=== PATIENT | male | born 1950 | race Caucasian/White ===

== ENCOUNTER 2016-09-02 10:05 | Inpatient (IN) | payer MEDICARE, MEDICAID ==
[2016-09-02] MEDS ORDERED: IPRATROPIUM/ALBUTEROL 3 ML NEB INH ONE (10:19)
[2016-09-02] MEDS ORDERED: IPRATROPIUM/ALBUTEROL 3 ML NEB INH STA (10:20)
[2016-09-02] MEDS ORDERED: cefTRIAXone 1 GM in SODIUM CHLORIDE 0.9% MINIBAG 100 ML IV STA (11:28)
[2016-09-02] MEDS ORDERED: AZITHROMYCIN INJ 500 MG in SODIUM CHLORIDE 0.9% 250 ML IV STA (11:30)
[2016-09-02] MEDS ORDERED: cefTRIAXone 1 GM VIAL ONE (11:50)
[2016-09-02] MEDS ORDERED: SODIUM CHLORIDE FLUSH 0.9% 10 ML SYRINGE IVP PRN (12:47)
[2016-09-02] MEDS ORDERED: ONDANSETRON 4 MG/2 ML VIAL IVP PRN (12:47)
[2016-09-02] MEDS: FAMOTIDINE 20 MG TABLET PO SCH (13:56)
[2016-09-02] MEDS ORDERED: guaiFENesin/CODEINE 5 ML UDC PO ONE (14:00)
[2016-09-02] MEDS ORDERED: methylPREDNISolone SUCCINATE 125 MG/2 ML VIAL IVP ONE (14:00)
[2016-09-02] MEDS: SODIUM CHLORIDE FLUSH 0.9% 10 ML SYRINGE IVP SCH ×2 (14:02→21:33)
[2016-09-02] MEDS: IPRATROPIUM/ALBUTEROL 3 ML NEB INH SCH ×2 (14:15→22:45)
[2016-09-02] MEDS: IPRATROPIUM/ALBUTEROL 3 ML NEB INH ONE ×2 (14:27→16:06)
[2016-09-02] MEDS: ACETAMINOPHEN/CODEINE 300 MG/30 MG TABLET PO PRN ×2 (14:59→21:33)
[2016-09-02] MEDS: BENZONATATE 100 MG CAPSULE PO SCH ×2 (15:01→21:33)
[2016-09-02] MEDS ORDERED: MAGNESIUM SULFATE 1 GM in SODIUM CHLORIDE 0.9% 50 ML IV ONE (16:00)
[2016-09-02] MEDS: NAPROXEN 250 MG TABLET PO SCH (16:13)
[2016-09-02] MEDS: SACCHAROMYCES BOULARDII 250 MG CAPSULE PO SCH (16:13)
[2016-09-02] MEDS: INSULIN ASPART 300 UNIT/3 ML PEN SUBQ SCH ×2 (16:24→21:32)
[2016-09-02] MEDS: metFORMIN 500 MG TABLET PO SCH (16:24)
[2016-09-02] MEDS ORDERED: metFORMIN 850 MG TABLET PO SCH (18:00)
[2016-09-02] MEDS ORDERED: FLUTICASONE HFA 220 MCG INHALER INH SCH (21:00)
[2016-09-02] MEDS ORDERED: SALMETEROL XINAFOATE INH SCH (21:00)
[2016-09-02] MEDS: methylPREDNISolone SUCCINATE 40 MG/ML VIAL IVP SCH (21:32)
[2016-09-02] MEDS: BUDESONIDE 0.5 MG/2 ML NEB INH SCH (22:45)
[2016-09-02] MEDS: FORMOTEROL FUMARATE NEB 20 MCG/2 ML INH SCH (22:45)
[2016-09-03] MEDS: TEMAZEPAM 15 MG CAPSULE PO PRN (00:41)
[2016-09-03] MEDS: BENZONATATE 100 MG CAPSULE PO SCH ×3 (05:17→21:11)
[2016-09-03] MEDS: ACETAMINOPHEN/CODEINE 300 MG/30 MG TABLET PO PRN ×3 (05:17→17:46)
[2016-09-03] MEDS: SODIUM CHLORIDE FLUSH 0.9% 10 ML SYRINGE IVP SCH ×3 (05:19→21:12)
[2016-09-03] MEDS: BUDESONIDE 0.5 MG/2 ML NEB INH SCH ×2 (07:08→20:55)
[2016-09-03] MEDS: FORMOTEROL FUMARATE NEB 20 MCG/2 ML INH SCH ×2 (07:08→20:55)
[2016-09-03] MEDS: IPRATROPIUM/ALBUTEROL 3 ML NEB INH SCH ×3 (07:08→14:50)
[2016-09-03] MEDS: guaiFENesin/CODEINE 5 ML UDC PO PRN ×2 (08:34→20:14)
[2016-09-03] MEDS: INSULIN ASPART 300 UNIT/3 ML PEN SUBQ SCH ×5 (08:36→21:03)
[2016-09-03] MEDS: AZITHROMYCIN 250 MG TABLET PO SCH (08:38)
[2016-09-03] MEDS: LISINOPRIL 5 MG TABLET PO SCH (08:47)
[2016-09-03] MEDS: FAMOTIDINE 20 MG TABLET PO SCH (08:47)
[2016-09-03] MEDS: NAPROXEN 250 MG TABLET PO SCH ×3 (08:47→16:33)
[2016-09-03] MEDS: SACCHAROMYCES BOULARDII 250 MG CAPSULE PO SCH ×2 (08:47→16:33)
[2016-09-03] MEDS: POLYETHYLENE GLYCOL 3350 17 GM PACKET PO SCH (08:48)
[2016-09-03] MEDS: ENOXAPARIN 40 MG/0.4 ML SYRINGE SUBQ SCH (08:48)
[2016-09-03] MEDS: cefTRIAXone 2 GM in SODIUM CHLORIDE 0.9% MINIBAG 100 ML IV SCH (08:48)
[2016-09-03] MEDS: metFORMIN 500 MG TABLET PO SCH ×2 (08:50→16:33)
[2016-09-03] MEDS ORDERED: metFORMIN 850 MG TABLET PO SCH (09:00)
[2016-09-03] MEDS: methylPREDNISolone SUCCINATE 40 MG/ML VIAL IVP SCH ×2 (09:37→20:14)
[2016-09-03] MEDS ORDERED: MAGNESIUM SULFATE 1 GM in SODIUM CHLORIDE 0.9% 50 ML IV ONE (14:45)
[2016-09-04] MEDS: ACETAMINOPHEN/CODEINE 300 MG/30 MG TABLET PO PRN ×4 (00:16→19:09)
[2016-09-04] MEDS: TEMAZEPAM 15 MG CAPSULE PO PRN ×2 (00:16→23:48)
[2016-09-04] MEDS: guaiFENesin/CODEINE 5 ML UDC PO PRN ×3 (03:40→20:21)
[2016-09-04] MEDS: ALBUTEROL NEB 2.5 MG/3 ML INH PRN ×4 (04:38→19:15)
[2016-09-04] MEDS: SODIUM CHLORIDE FLUSH 0.9% 10 ML SYRINGE IVP SCH ×3 (05:00→21:23)
[2016-09-04] MEDS: BENZONATATE 100 MG CAPSULE PO SCH ×3 (06:13→21:23)
[2016-09-04] MEDS: FORMOTEROL FUMARATE NEB 20 MCG/2 ML INH SCH ×2 (07:30→19:15)
[2016-09-04] MEDS: BUDESONIDE 0.5 MG/2 ML NEB INH SCH ×2 (07:30→19:15)
[2016-09-04] MEDS: INSULIN ASPART 300 UNIT/3 ML PEN SUBQ SCH ×4 (08:49→20:56)
[2016-09-04] MEDS: ENOXAPARIN 40 MG/0.4 ML SYRINGE SUBQ SCH (08:50)
[2016-09-04] MEDS: cefTRIAXone 2 GM in SODIUM CHLORIDE 0.9% MINIBAG 100 ML IV SCH (08:50)
[2016-09-04] MEDS: LISINOPRIL 5 MG TABLET PO SCH (08:51)
[2016-09-04] MEDS: FAMOTIDINE 20 MG TABLET PO SCH (08:51)
[2016-09-04] MEDS: metFORMIN 500 MG TABLET PO SCH ×2 (08:51→16:37)
[2016-09-04] MEDS: methylPREDNISolone SUCCINATE 40 MG/ML VIAL IVP SCH ×2 (08:51→20:57)
[2016-09-04] MEDS: NAPROXEN 250 MG TABLET PO SCH ×3 (08:52→16:37)
[2016-09-04] MEDS: AZITHROMYCIN 250 MG TABLET PO SCH (08:52)
[2016-09-04] MEDS: SACCHAROMYCES BOULARDII 250 MG CAPSULE PO SCH ×2 (08:52→16:37)
[2016-09-04] MEDS: POLYETHYLENE GLYCOL 3350 17 GM PACKET PO SCH (08:53)
[2016-09-05] MEDS: ACETAMINOPHEN/CODEINE 300 MG/30 MG TABLET PO PRN ×4 (00:35→18:41)
[2016-09-05] MEDS: guaiFENesin/CODEINE 5 ML UDC PO PRN ×4 (02:25→20:45)
[2016-09-05] MEDS: SODIUM CHLORIDE FLUSH 0.9% 10 ML SYRINGE IVP SCH ×3 (06:37→21:14)
[2016-09-05] MEDS: BENZONATATE 100 MG CAPSULE PO SCH ×3 (06:37→22:37)
[2016-09-05] MEDS: BUDESONIDE 0.5 MG/2 ML NEB INH SCH ×2 (07:20→20:45)
[2016-09-05] MEDS: ALBUTEROL NEB 2.5 MG/3 ML INH PRN ×3 (07:20→20:45)
[2016-09-05] MEDS: FORMOTEROL FUMARATE NEB 20 MCG/2 ML INH SCH ×2 (07:20→20:45)
[2016-09-05] MEDS: INSULIN ASPART 300 UNIT/3 ML PEN SUBQ SCH ×4 (07:58→20:45)
[2016-09-05] MEDS: levoFLOXacin 250 MG TABLET PO SCH (08:07)
[2016-09-05] MEDS: POLYETHYLENE GLYCOL 3350 17 GM PACKET PO SCH (08:07)
[2016-09-05] MEDS: NAPROXEN 250 MG TABLET PO SCH ×3 (08:08→17:07)
[2016-09-05] MEDS: predniSONE 20 MG TABLET PO SCH (08:08)
[2016-09-05] MEDS: SACCHAROMYCES BOULARDII 250 MG CAPSULE PO SCH ×2 (08:08→17:06)
[2016-09-05] MEDS: LISINOPRIL 5 MG TABLET PO SCH (08:09)
[2016-09-05] MEDS: ENOXAPARIN 40 MG/0.4 ML SYRINGE SUBQ SCH (08:09)
[2016-09-05] MEDS: FAMOTIDINE 20 MG TABLET PO SCH (08:09)
[2016-09-05] MEDS: metFORMIN 500 MG TABLET PO SCH ×2 (08:10→17:06)
[2016-09-05] MEDS ORDERED: methylPREDNISolone SUCCINATE 40 MG/ML VIAL IVP SCH (09:00)
[2016-09-05] MEDS ORDERED: diazePAM 5 MG TABLET PO SCH (21:00)
[2016-09-06] MEDS: ACETAMINOPHEN/CODEINE 300 MG/30 MG TABLET PO PRN ×3 (00:38→13:10)
[2016-09-06] MEDS: TEMAZEPAM 15 MG CAPSULE PO PRN (01:42)
[2016-09-06] MEDS: guaiFENesin/CODEINE 5 ML UDC PO PRN ×2 (05:25→11:45)
[2016-09-06] MEDS: BENZONATATE 100 MG CAPSULE PO SCH ×2 (05:25→13:10)
[2016-09-06] MEDS: SODIUM CHLORIDE FLUSH 0.9% 10 ML SYRINGE IVP SCH ×2 (05:26→14:44)
[2016-09-06] MEDS: INSULIN ASPART 300 UNIT/3 ML PEN SUBQ SCH ×2 (08:11→12:05)
[2016-09-06] MEDS: POLYETHYLENE GLYCOL 3350 17 GM PACKET PO SCH (08:12)
[2016-09-06] MEDS: BUDESONIDE 0.5 MG/2 ML NEB INH SCH (08:38)
[2016-09-06] MEDS: ALBUTEROL NEB 2.5 MG/3 ML INH PRN (08:39)
[2016-09-06] MEDS: FORMOTEROL FUMARATE NEB 20 MCG/2 ML INH SCH (08:39)
[2016-09-06] MEDS: metFORMIN 500 MG TABLET PO SCH (08:48)
[2016-09-06] MEDS: levoFLOXacin 250 MG TABLET PO SCH (08:49)
[2016-09-06] MEDS: LISINOPRIL 5 MG TABLET PO SCH (08:49)
[2016-09-06] MEDS: predniSONE 20 MG TABLET PO SCH (08:50)
[2016-09-06] MEDS: ENOXAPARIN 40 MG/0.4 ML SYRINGE SUBQ SCH (08:51)
[2016-09-06] MEDS: NAPROXEN 250 MG TABLET PO SCH ×2 (08:51→12:05)
[2016-09-06] MEDS: SACCHAROMYCES BOULARDII 250 MG CAPSULE PO SCH (08:51)
[2016-09-06] MEDS: FAMOTIDINE 20 MG TABLET PO SCH (08:52)
== END 2016-09-06 14:56 | disposition home or self-care (01) | DRG 190 ==
DX: J44.0 Chronic obstructive pulmonary disease with (acute) lower respiratory infection (principal); J18.9 Pneumonia, unspecified organism; J44.9 Chronic obstructive pulmonary disease, unspecified; I10 Essential (primary) hypertension; J15.7 Pneumonia due to Mycoplasma pneumoniae; J96.01 Acute respiratory failure with hypoxia; J44.1 Chronic obstructive pulmonary disease with (acute) exacerbation; J20.9 Acute bronchitis, unspecified; E11.9 Type 2 diabetes mellitus without complications; Z79.84 Long term (current) use of oral hypoglycemic drugs; Z87.891 Personal history of nicotine dependence; J84.10 Pulmonary fibrosis, unspecified; Z79.52 Long term (current) use of systemic steroids; Z80.1 Family history of malignant neoplasm of trachea, bronchus and lung

== ENCOUNTER 2019-07-30 13:35 | Inpatient (IN) | payer MEDICARE, MEDICAID ==
[2019-07-30 15:34] LABS: BASOPHILS % (AUTO) 0.3 %; HGB - HEMOGLOBIN 12.1 g/dL (14.0-18.0); LYMPHOCYTES # (AUTO) 0.5 10^3/uL (1.5-3.5); LYMPHOCYTES % (AUTO) 4.2 %; MEAN CORPUSCULAR HEMOGLOBIN 28.4 pg (27.0-31.0); MEAN CORPUSCULAR HGB CONC 30.9 g/dL (32.0-36.0); MEAN PLATELET VOLUME 8.3 fL (7.4-11.4); MONOCYTES # (AUTO) 0.5 10^3/uL (0.0-1.0); NEUTROPHILS # (AUTO) 9.7 10^3/uL (1.5-6.6); NEUTROPHILS % (AUTO) 89.8 %; PLT - PLATELET COUNT 341 10^3/uL (130-450); RED BLOOD COUNT 4.26 10^6/uL (4.70-6.10); RED CELL DISTRIBUTION WIDTH 15.4 % (12.0-15.0); WHITE BLOOD COUNT 10.8 x10^3/uL (4.8-10.8)
[2019-07-30 15:46] LABS: ALBUMIN 4.1 g/dL (3.2-5.5); ALBUMIN/GLOBULIN RATIO 1.2 (1.0-2.2); BILIRUBIN,TOTAL 0.4 mg/dL (0.2-1.0); CALCIUM 9.4 mg/dL (8.5-10.3); CREATININE 1.1 mg/dL (0.6-1.2); TOTAL PROTEIN 7.6 g/dL (6.7-8.2)
[2019-07-30] MEDS ORDERED: DEXAMETHASONE 10 MG/ML VIAL PO STA (15:59)
[2019-07-30] MEDS ORDERED: CHERRY SYRUP 10 ML UDC PO ONE (15:59)
[2019-07-30] MEDS ORDERED: IPRATROPIUM/ALBUTEROL 3 ML NEB INH STA (15:59)
--- NOTE | 2019-07-30 16:05 | ED Physician Documentation ---
PD HPI DYSPNEA - Stated complaint Stated Complaint: SOA - Chief complaint Chief Complaint: Resp - History obtained from History obtained from: Patient - History of Present Illness Timing - details: Gradual onset Pain level max: 0 Pain level now: 0 Inciting event(s): URI Improved by: O2, Rest Worsened by: Exertion Associated symptoms: Fever, Cough Recently seen: Not recently seen - Additional information Additional information: 69-year-old male with a history of COPD, sees a nuclear pharmacist in [place]. He states he has been sick for the past 4 to 5 days. Is maintained on azithromycin daily. Started Bactrim 4 days ago. Concerned that he may have pneumonia. He is normally on 2 L of home O2 21/02. He has had to increase his home O2 to 3 L. He states he feels more out of breath. Has had chills, unsure if he has had fever. Has a dry cough. He is currently on prednisone 40 mg a day as well. 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 : None HEENT: None Psych: None Musculoskeletal: None Derm: None - Past Surgical History Past Surgical History: Yes General: Other (thoracotomy of left lobe with wedge) - Present Medications Home Medications: Ambulatory Orders Medication Instructions Recorded Confirmed Acetaminophen/Cod 300/30 [Tylenol 1 - 2 tab PO Q6H PRN 09/02/16 09/02/16 #3] Albuterol Sulfate [Proair Hfa 2 puffs INH Q4H PRN 09/02/16 09/02/16 Inhaler] Diazepam 5 mg PO QPM 09/02/16 09/02/16 Etodolac [Lodine] 400 mg PO DAILY 09/02/16 09/02/16 Fluticasone 220 Mcg [Flovent] 2 puffs INH BID 09/02/16 09/02/16 Ipratropium/Albuterol [Combivent 1 puffs INH QID 09/02/16 09/02/16 Respimat] Salmeterol Xinafoate [Serevent 1 puffs INH BID 09/02/16 09/02/16 Diskus] Tiotropium [place] [Spiriva] 1 puffs INH DAILY 09/02/16 09/02/16 lisinopriL [Lisinopril] 10 mg PO DAILY 09/02/16 09/02/16 metFORMIN [Glucophage] 1,000 mg PO DAILY PM 09/02/16 09/02/16 metFORMIN [Glucophage] 1,500 mg PO QDBREAKFAST 09/02/16 09/02/16 Benzonatate [Tessalon] 100 mg PO TID #30 capsule 09/06/16 Budesonide [Pulmicort] 0.5 mg INH RTBID neb 09/06/16 Famotidine [Pepcid] 20 mg PO DAILY tablet 09/06/16 Formoterol Fumarate [Perforomist] 20 mcg INH RTBID neb 09/06/16 Insulin Aspart [NovoLOG] 1 - 5 unit SUBQ 09/06/16 0800,1200,1700,2100 pen diazePAM [Valium] 5 mg PO QPM #30 tablet 09/06/16 guaiFENesin/CODEINE [Robitussin AC] 5 ml PO Q6HR PRN 7 Days udc 09/06/16 levoFLOXacin [Levaquin] 750 mg PO DAILY #5 tablet 09/06/16 predniSONE [Deltasone] 20 mg PO DAILYWM #10 tablet 09/06/16 - Allergies Allergies/Adverse Reactions: Allergies Allergy/AdvReac Type Severity Reaction Status Date / Time ciprofloxacin [From Cipro] Allergy Unknown Verified 07/30/19 14:21 ciprofloxacin HCl * Allergy Unknown Verified 07/30/19 14:21 [From Cipro] hydromorphone HCl * Allergy Unknown Verified 07/30/19 14:21 [From Dilaudid] oxycodone Allergy Unknown Verified 07/30/19 14:21 oxycodone HCl * Allergy Unknown Verified 07/30/19 14:21 [From OxyContin] - Social History Does the pt smoke?: No Smoking Status: Former smoker - POLST Patient has POLST: No POLST Status: Full Code PD ED PE NORMAL - Vitals Vital signs reviewed: Yes - General General: Alert and oriented X 3, No acute distress - HEENT HEENT: PERRL, Ears normal, Moist mucous membranes, Pharynx benign - Neck Neck: Supple, no meningeal sign - Cardiac Cardiac: RRR - Respiratory Respiratory: Other (Moderate respiratory distress with very diminished breath sounds and wheezing bilaterally) - Abdomen Abdomen: Soft, Non tender, Non distended - Derm Derm: Warm and dry, No rash - Extremities Extremities: No edema - Neuro Neuro: Alert and oriented X 3 Results - Vitals Vitals: Vital Signs - 24 hr 07/30/19 07/30/19 07/30/19 14:18 16:04 16:24 Temperature 37.1 C Heart Rate 93 90 89 Respiratory 20 18 20 Rate Blood Pressure 131/71 H 115/77 O2 Saturation 94 98 07/30/19 07/30/19 07/30/19 16:47 17:04 19:00 Temperature Heart Rate 91 91 103 H Respiratory 18 18 18 Rate Blood Pressure 109/79 134/75 H O2 Saturation 100 97 Oxygen O2 Source Room air Oxygen Flow Rate 4 - Labs Labs: Laboratory Tests 07/30/19 07/30/19 07/30/19 15:29 15:29 15:29 WBC 10.8 RBC 4.26 L Hgb 12.1 L Hct 39.2 L MCV 92.0 MCH 28.4 MCHC 30.9 L RDW 15.4 H Plt Count 341 MPV 8.3 Neut # (Auto) 9.7 H Lymph # (Auto) 0.5 L [place] # (Auto) 0.5 Eos # (Auto) 0.0 Baso # (Auto) 0.0 Absolute Nucleated RBC 0.00 Nucleated RBC % 0.0 Sodium 136 Potassium 5.6 H Chloride 98 L Carbon Dioxide 28 Anion Gap 10.0 BUN 21 H Creatinine 1.1 Estimated GFR (MDRD) 66 L Glucose 191 H Calcium 9.4 Total Bilirubin 0.4 AST 22 ALT 21 Alkaline Phosphatase 64 Troponin I High Sens 6.8 B-Natriuretic Peptide Total Protein 7.6 Albumin 4.1 Globulin 3.5 Albumin/Globulin Ratio 1.2 Lipase 26 Influenza A (Rapid) Influenza B (Rapid) 07/30/19 07/30/19 15:29 16:00 WBC RBC Hgb Hct MCV MCH MCHC RDW Plt Count MPV Neut # (Auto) Lymph # (Auto) [place] # (Auto) Eos # (Auto) Baso # (Auto) Absolute Nucleated RBC Nucleated RBC % Sodium Potassium Chloride Carbon Dioxide Anion Gap BUN Creatinine Estimated GFR (MDRD) Glucose Calcium Total Bilirubin AST ALT Alkaline Phosphatase Troponin I High Sens B-Natriuretic Peptide 34 Total Protein Albumin Globulin Albumin/Globulin Ratio Lipase Influenza A (Rapid) Negative Influenza B (Rapid) Negative - Rads (name of study) Chest x-ray Radiology: Prelim report reviewed, EMP read contemporaneously, See rad report (Hyperinflated lungs compatible with COPD. Stellate lateral right upper lobe opacity. Question scarring or lung nodule. Recommend chest CT. Lateral right basilar atelectasis or airspace disease) PD MEDICAL DECISION MAKING - ED course Complexity details: reviewed results, re-evaluated patient, considered differential, d/w patient ED course: Patient with a COPD exacerbation. He is on 4 inhalers at home, but no nebulizers. He is also on 40 mg of prednisone daily as well as azithromycin chronically. He has been taking Bactrim as well. Added doxycycline here. Given 3 nebulizer treatments, O2 sat improved, but he is still requiring 3 to 4 L via nasal cannula, his baseline is 2 L. Whenever he gets up to walk he drops to the mid 80s. Discussed the case with Dr. Prater, hospitalist who accepts This document was made in part using voice recognition software. While efforts are made to proofread this document, sound alike and grammatical errors may occur. Patient also has mild hyperkalemia, this should improve with the albuterol administration. Departure - Departure Disposition: ED Place in Observation Clinical Impression: COPD exacerbation, Hyperkalemia Condition: Stable Discharge Date/Time: 07/30/19 20:30
--- NOTE | 2019-07-30 16:12 | XRAY Report ---
Reason: dyspnea Procedure Date: 07/30/2019 Accession Number: [id number] / [id number] Procedure: XR - Chest 1 View X-Ray CPT Code: 61163 Final Report FULL RESULT: EXAM: CHEST RADIOGRAPHY EXAM DATE: 07/30/2019 04:00 PM. CLINICAL HISTORY: Dyspnea. COMPARISON: CHEST 2 VIEW PA/LAT 09/02/2016 10:29 AM. TECHNIQUE: 1 view. FINDINGS: Lungs/Pleura: Hyperinflated lungs. Prior extensive left upper lobe airspace disease has resolved. Elongated lateral right basilar opacity. Stellate lateral right upper lobe opacity projecting near posterolateral right fifth rib. Mediastinum: Within exam limitations, the cardiomediastinal contour is normal. Other: None. IMPRESSION: 1. Hyperinflated lungs compatible with COPD. 2. Stellate lateral right upper lobe opacity. Question scarring or lung nodule. Recommend chest CT. 3. Lateral right basilar atelectasis or airspace disease. RADIA
[2019-07-30] MEDS ORDERED: ALBUTEROL NEB 2.5 MG/3 ML INH STA (16:36)
[2019-07-30] MEDS ORDERED: ALBUTEROL NEB 2.5 MG/3 ML INH ONE (16:47)
[2019-07-30] MEDS ORDERED: DOXYCYCLINE 100 MG TABLET PO STA (17:19)
[2019-07-30] MEDS ORDERED: SODIUM CHLORIDE 0.9% 1,000 ML IV ONE (18:22)
[2019-07-30] MEDS ORDERED: ALBUTEROL NEB 2.5 MG/3 ML INH PRN (19:52)
--- NOTE | 2019-07-30 19:55 | HISTORY & PHYSICAL EXAMINATION ---
Chief Complaint - Chief Complaint Chief Complaint: Dyspnea History of Present Illness - Admitted From Admitted From:: Home - History Obtained From Records Reviewed: Yes History obtained from: Patient, ER Physician, EMR - History of Present Illness HPI Comment/Other: This is a 69-year-old male with a past medical history significant for COPD on 2 L of oxygen, type 2 diabetes who presents today complaining of worsening shortness of breath over the past 5 days. States he first developed flulike symptoms about 1 week ago. He had chills, malaise, body aches. He then started to feel short of breath about 2 days later. He is on chronic prednisone 20 mg daily and he increase this to 60 mg with some improvement in his symptoms. He also began taking Bactrim orally that he had available at the pharmacy. He said he felt better on Tuesday but that his dyspnea returned and has progressively become more severe and so he sought medical attention today. He has been on chronic steroids for many years. He has also been on daily azithromycin pres cribed by his fingerprint classifier for about the past 8 months. He follows with Dr. Lebron Martinez at the [facility]. He no longer smokes but did smoke about a pack and 1/2 to 3 packs a day for around 30 years. He wears 2 L of oxygen at baseline and uses 3 L with exertion. This is his second hospitalization for COPD exacerbation with his last being about 2 years ago. He reports feeling dyspneic at rest but it is more prominent with exertion. He is also had a productive cough with beige sputum. He does report left-sided chest pain that is pleuritic in nature and is most profound with a deep inspiration. The pain is pressure-like in nature. He reports no prior cardiac history. He states he had a stress test about 2 years ago which was unremarkable. He is also complaining of lower extremity edema but he states this is chronic for him. It becomes more profound when he consumes more salt in his diet. He denies orthopnea. He reports no nausea, vomiting, abdominal pain, diarrhea. In the emergency department, he is found to be afebrile with temperature of the 37.1. He was tachycardic with a heart rate of 93. Blood pressure was 131/71. He was slightly tachypneic with a respiratory of 20 and he was saturating 98% on 4 L of oxygen. Labs were unremarkable except for potassium of 5.6. Influenza was negative. A chest x-ray did not reveal an obvious infiltrate. He was treated with Decadron p.o. as well as a few breathing treatments with only mild improvement. He still felt quite dyspneic with exertion and his oxygen durations dropped to the 80s and therefore medicine was consulted for admission. History - Past Medical History Respiratory: reports: COPD, Emphysema, Pneumonia Endocrine/Autoimmune: reports: Type 2 diabetes GI: reports: GERD STATE COMPTROLLER: reports: None : reports: None HEENT: reports: None Psych: reports: None Musculoskeletal: reports: None Derm: reports: None MRSA Hx?: No - Past Surgical History General: reports: Other (thoracotomy of left lobe with wedge) - Family & Social History Family History Comment/Other: Reports no known family history. He denies family history of COPD or cardiac problems. Living arrangement: At home Living Situation: Alone Social History Notes: He lives at home alone. He was previously employed for the [employer] and worked with the [employer] system. He reports 3 exposures in the past to chlorine. He no longer smokes but did smoke a pack and 1/2 to 3 packs a day for 32 years. He does not drink alcohol. - Substance History Use: Uses substance without health or social issues: NONE - POLST Patient has POLST: No POLST Status: Full Code Meds/Allgy - Home Medications Home Medications: Ambulatory Orders Medication Instructions Recorded Confirmed Acetaminophen/Cod 300/30 [Tylenol 1 - 2 tab PO Q6H PRN 09/02/16 09/02/16 #3] Albuterol Sulfate [Proair Hfa 2 puffs INH Q4H PRN 09/02/16 09/02/16 Inhaler] Diazepam 5 mg PO QPM 09/02/16 09/02/16 Etodolac [Lodine] 400 mg PO DAILY 09/02/16 09/02/16 Fluticasone 220 Mcg [Flovent] 2 puffs INH BID 09/02/16 09/02/16 Ipratropium/Albuterol [Combivent 1 puffs INH QID 09/02/16 09/02/16 Respimat] Salmeterol Xinafoate [Serevent 1 puffs INH BID 09/02/16 09/02/16 Diskus] Tiotropium [place] [Spiriva] 1 puffs INH DAILY 09/02/16 09/02/16 lisinopriL [Lisinopril] 10 mg PO DAILY 09/02/16 09/02/16 metFORMIN [Glucophage] 1,000 mg PO DAILY PM 09/02/16 09/02/16 metFORMIN [Glucophage] 1,500 mg PO QDBREAKFAST 09/02/16 09/02/16 Benzonatate [Tessalon] 100 mg PO TID #30 capsule 09/06/16 Budesonide [Pulmicort] 0.5 mg INH RTBID neb 09/06/16 Famotidine [Pepcid] 20 mg PO DAILY tablet 09/06/16 Formoterol Fumarate [Perforomist] 20 mcg INH RTBID neb 09/06/16 Insulin Aspart [NovoLOG] 1 - 5 unit SUBQ 09/06/16 0800,1200,1700,2100 pen diazePAM [Valium] 5 mg PO QPM #30 tablet 09/06/16 guaiFENesin/CODEINE [Robitussin AC] 5 ml PO Q6HR PRN 7 Days udc 09/06/16 levoFLOXacin [Levaquin] 750 mg PO DAILY #5 tablet 09/06/16 predniSONE [Deltasone] 20 mg PO DAILYWM #10 tablet 09/06/16 - Allergies Allergies/Adverse Reactions: Allergies Allergy/AdvReac Type Severity Reaction Status Date / Time ciprofloxacin [From Cipro] Allergy Unknown Verified 07/30/19 14:21 ciprofloxacin HCl * Allergy Unknown Verified 07/30/19 14:21 [From Cipro] hydromorphone HCl * Allergy Unknown Verified 07/30/19 14:21 [From Dilaudid] oxycodone Allergy Unknown Verified 07/30/19 14:21 oxycodone HCl * Allergy Unknown Verified 07/30/19 14:21 [From OxyContin] Review of Systems - Constitutional Constitutional: reports: Chills, Malaise. denies: Fatigue, Fever - Ears, Nose & Throat Ears, Nose & Throat: reports: Nasal congestion, Sore throat - Cardiovascular Cariovascular: reports: Chest pain (Pleuritic and present with deep inspiration.), Edema, Exertional dyspnea, Decr. exercise tolerance. denies: Lightheadedness - Respiratory Respiratory: reports: Cough, Sputum production, Wheezing, SOB at rest, SOB with exertion - Gastrointestinal Gastrointestinal: denies: Abdominal pain, Diarrhea, Nausea, Vomiting - Genitourinary Genitourinary: denies: Dysuria - Musculoskeletal Musculoskeletal: reports: Muscle pain, Back pain - Integumentary Integumentary: denies: Rash - Neurological Neurological: denies: General weakness, Focal weakness - All Other Systems All Other Systems: reports: Reviewed and negative Prior Level of Functionality: He lives alone and is independent with his ADLs. Exam - Vital Signs Reviewed Vital Signs: Yes Vital Signs: Vital Signs x48h Temp Pulse Resp BP Pulse Ox 07/30/19 19:00 103 H 18 134/75 H 97 07/30/19 17:04 91 18 109/79 100 07/30/19 16:47 91 18 07/30/19 16:24 89 20 07/30/19 16:04 90 18 115/77 98 07/30/19 14:18 37.1 C 93 20 131/71 H 94 - Physical Exam General Appearance: positive: No acute distress, Alert Eyes Bilateral: positive: Normal inspection ENT: positive: ENT inspection nml, Other (Nasal cannula in place) Neck: positive: Nml inspection Respiratory: positive: No respiratory distress, Wheezes (He has faint expiratory wheezes.) Cardiovascular: positive: Regular rate & rhythm, No murmur, Tachycardia. negative: Systolic murmur, Diastolic murmur Abdomen: positive: Non-tender, No distention. negative: Tenderness, Guarding, Rebound Skin: positive: No rash, Warm, Dry Extremities: positive: Full ROM, Pedal edema (+2 pitting edema in bilateral lower extremities.) Neurologic/Psychiatric: positive: Oriented x3. negative: Disoriented to person, Disoriented to place, Disoriented to time, Weakness, Slurred/abnml speech Conclusion/Plan - Problem List (1) COPD exacerbation Conclusion/Plan: His presentation is consistent with a COPD exacerbation. He is still symptomatic despite treatment in the emergency department and therefore will be placed in observation. We will start him on Solu-Medrol 40 mg twice a day. We will also start him on Levaquin as of 750 mg orally and duo nebs [id number]. Continue supplemental oxygen for goal saturation greater than 88%. (2) Hyperkalemia Conclusion/Plan: His potassium is elevated at 5.6. The etiology is not clear as he does not have acute kidney injury although he is on lisinopril and is a diabetic with mild hyperglycemia. Will recheck a basic metabolic panel and hold lisinopril for time being. (3) Chronic respiratory failure with hypoxia Conclusion/Plan: He has chronic respiratory failure with hypoxia secondary to his COPD. He is on 2 L of oxygen at baseline. He is currently saturating high 90s on 2 L of oxygen but reportedly desaturated to the mid 80s with exertion. Will treat his underlying COPD exacerbation and will likely perform another exercise desaturation test prior to discharge. Goal oxygen saturation will be greater than 88%. He is agreeable to seeing palliative care on outpatient basis given the severity of his COPD. (4) Lower extremity edema Conclusion/Plan: Ports is chronic and has been waxing and waning depending on his salt intake. Reports no prior history of heart failure and denies orthopnea. Will check a BNP for the time being. Unfortunately echocardiogram is not available for next few days but he may require an outpatient echocardiogram. Will limit his salt intake and ask him to elevated his legs. Will consider compression stockings if patient is agreeable. (5) Diabetes mellitus type II, non insulin dependent Conclusion/Plan: He has type 2 diabetes and is on chronic prednisone for his COPD. His last A1c was 7.1%. He is only on metformin at home. We will place him on a carb controlled diet and start him on Lantus 5 units at night along with sliding scale. We will recheck another hemoglobin A1c. (6) Right upper lobe pulmonary nodule Conclusion/Plan: Concern for right upper lobe lung nodule on the chest x-ray. The patient has been getting outpatient CT scans of the chest every 3 months and is scheduled for 1 in 2 weeks. I did inform him that chest x-ray was concerning for possible nodule. He states he will follow-up with his fingerprint classifier. - Lab Results Lab results reviewed: Yes Fish Bones: 07/31/19 05:23 07/31/19 05:23 - Diagnostic Imaging Results Diagnostic Imaging Results: positive: Final report reviewed Core Measures - Anticipated LOS I expect patient to be DC'd or transferred within 96 hours.: Yes - Issues Hospital Issues and Management Plan: 69-year-old male with COPD on chronic oxygen admitted for COPD exacerbation. Will treat with antibiotics, steroids, breathing treatments. - DVT/VTE - Prophylaxis VTE/DVT Device ordered at admit?: Yes VTE/DVT Prophylaxis med ordered at admit?: Yes
[2019-07-30] MEDS ORDERED: methylPREDNISolone SUCCINATE 40 MG/ML VIAL IVP SCH (21:00)
[2019-07-30] MEDS: INSULIN GLARGINE 300 UNIT/3 ML PEN SUBQ SCH (21:16)
[2019-07-30] MEDS: INSULIN ASPART 300 UNIT/3 ML PEN SUBQ SCH (21:17)
[2019-07-30] MEDS: ACETAMINOPHEN/CODEINE 300 MG/30 MG TABLET PO PRN (22:09)
[2019-07-30] MEDS: IPRATROPIUM/ALBUTEROL 3 ML NEB INH SCH (23:21)
[2019-07-31] MEDS: SODIUM CHLORIDE FLUSH 0.9% 10 ML SYRINGE IVP SCH ×3 (00:42→17:23)
[2019-07-31] MEDS: IPRATROPIUM/ALBUTEROL 3 ML NEB INH SCH ×6 (01:00→21:26)
[2019-07-31] MEDS: BENZONATATE 100 MG CAPSULE PO PRN ×2 (01:50→09:09)
[2019-07-31] MEDS: ACETAMINOPHEN/CODEINE 300 MG/30 MG TABLET PO PRN ×2 (03:53→13:30)
[2019-07-31 05:45] LABS: BASOPHILS % (AUTO) 0.2 %; HGB - HEMOGLOBIN 11.5 g/dL (14.0-18.0); LYMPHOCYTES # (AUTO) 0.5 10^3/uL (1.5-3.5); LYMPHOCYTES % (AUTO) 3.6 %; MEAN CORPUSCULAR HEMOGLOBIN 28.3 pg (27.0-31.0); MEAN CORPUSCULAR HGB CONC 30.5 g/dL (32.0-36.0); MEAN CORPUSCULAR VOLUME 92.6 fL (80.0-94.0); MEAN PLATELET VOLUME 8.6 fL (7.4-11.4); MONOCYTES # (AUTO) 0.7 10^3/uL (0.0-1.0); MONOCYTES % (AUTO) 4.9 %; NEUTROPHILS # (AUTO) 12.8 10^3/uL (1.5-6.6); NEUTROPHILS % (AUTO) 90.5 %; PLT - PLATELET COUNT 323 10^3/uL (130-450); RED BLOOD COUNT 4.07 10^6/uL (4.70-6.10); RED CELL DISTRIBUTION WIDTH 15.2 % (12.0-15.0); WHITE BLOOD COUNT 14.1 x10^3/uL (4.8-10.8)
[2019-07-31 06:02] LABS: CALCIUM 8.7 mg/dL (8.5-10.3); MAGNESIUM 2.4 mg/dL (1.7-2.8); PHOSPHORUS 4.4 mg/dL (2.5-4.6)
[2019-07-31 06:04] LABS: HB2 TOTAL 11.5 g/dL; HEMOGLOBIN A1C 0.75 g/dL; HEMOGLOBIN A1C % 8.1 % (4.6-6.2)
[2019-07-31] MEDS: INSULIN ASPART 300 UNIT/3 ML PEN SUBQ SCH ×4 (09:07→22:12)
[2019-07-31] MEDS: ENOXAPARIN 40 MG/0.4 ML SYRINGE SUBQ SCH (09:08)
[2019-07-31] MEDS: levoFLOXacin 250 MG TABLET PO SCH (09:08)
[2019-07-31] MEDS: methylPREDNISolone SUCCINATE 40 MG/ML VIAL IVP SCH ×3 (09:14→22:13)
[2019-07-31] MEDS ORDERED: methylPREDNISolone SUCCINATE 40 MG/ML VIAL IVP SCH (10:00)
[2019-07-31] MEDS ORDERED: SODIUM CHLORIDE 0.65% NASAL SPRAY NAS PRN (13:39)
[2019-07-31] MEDS ORDERED: SODIUM POLYSTYRENE SULFONATE 15 GM/60 ML BOTTLE PO ONE (14:45)
[2019-07-31] MEDS: SODIUM CHLORIDE 0.9% 1,000 ML IV SCH (14:54)
[2019-07-31] MEDS: SODIUM CHLORIDE FLUSH 0.9% 10 ML SYRINGE IVP PRN (14:55)
--- NOTE | 2019-07-31 15:46 | PROVIDER PROGRESS NOTE ---
Assessment/Plan - Problem List (1) COPD exacerbation Assessment/Plan: pt still report SOB, increase of steroid dosage to 60 mg tid from 40 mg bid. pt took 60 mg Prednisone at home and failed resume home INH steroid, long acting beta-agonist, and albuterol continue supplement of O2 (2) Hyperkalemia Conclusion/Plan: continue increase, unknown etiology, pt is on insulin and beta-agonist. order Kaylaxine continue lab monitor (3) Chronic respiratory failure with hypoxia Conclusion/Plan: pt present SOB, increase of steroid dosage to 60 mg tid from 40 mg bid. pt took 60 mg Prednisone at home and failed resume home INH steroid, long acting beta-agonist, and albuterol continue supplement of O2 (4) Lower extremity edema Conclusion/Plan: stable. pt has no issue to walk. advise rise his legs and Will consider compression stockings if patient is agreeable. 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 Concern for right upper lobe lung nodule on the chest x-ray. The patient has been getting outpatient CT scans of the chest every 3 months and is scheduled for 1 in 2 weeks. I did inform him that chest x-ray was concerning for possible nodule. He states he will follow-up with his corporate safety coordinator. - Current Meds Current Meds: Current Medications Generic Name Dose Route Start Last Admin Trade Name Freq PRN Reason Stop Dose Admin Acetaminophen/Codeine Phosphate 1 tab 07/30/19 21:29 07/31/19 13:30 Tylenol #3 PO 1 tab Q6HR PRN Administration PAIN Albuterol/Ipratropium 3 ml 07/31/19 11:00 07/31/19 14:59 Duoneb INH 3 ml RTQ4H NAYELI Administration Benzonatate 100 mg 07/30/19 19:52 07/31/19 09:09 Tessalon PO 100 mg TID PRN Administration Cough Enoxaparin Sodium 40 mg 07/31/19 09:00 07/31/19 09:08 Lovenox SUBQ 40 mg DAILY NAYELI Administration Sodium Chloride 1,000 mls @ 100 mls/hr 07/31/19 14:00 07/31/19 14:54 Normal Saline 0.9% IV 08/01/19 09:59 100 mls/hr .Q10H NAYELI Administration Insulin Aspart 1 - 9 unit 07/30/19 21:00 07/31/19 11:22 Novolog SUBQ 1 unit 0800,1200,1700,2100 NAYELI Administration Protocol Insulin Glargine 5 unit 07/30/19 21:00 07/30/19 21:16 Lantus Solostar SUBQ 5 unit QPM NAYELI Administration Levofloxacin 750 mg 07/31/19 09:00 07/31/19 09:08 Levaquin PO 750 mg DAILY NAYELI Administration Methylprednisolone 60 mg 07/31/19 09:09 07/31/19 09:14 Solu-Medrol (40mg Vial) IVP 60 mg TID NAYELI Administration Sodium Chloride 10 ml 07/30/19 19:47 07/31/19 14:55 Normal Saline Flush 0.9% IVP 10 ml PRN PRN Administration NEEDED PER PROVIDER ORDERS Sodium Chloride 10 ml 07/31/19 01:00 07/31/19 09:08 Normal Saline Flush 0.9% IVP 10 ml 0100,0900,1700 NAYELI Administration - Lab Result Fish Bone Diagrams: 07/31/19 05:23 07/31/19 13:21 - Additional Planning My Orders: My Active Orders 08/01/19 05:00 BMP - BASIC METABOLIC PANEL [CHEM] DAILYLAB CBC - COMP BLD CT W/AUTO DIFF [HEME] DAILYLAB 08/02/19 05:00 BMP - BASIC METABOLIC PANEL [CHEM] DAILYLAB CBC - COMP BLD CT W/AUTO DIFF [HEME] DAILYLAB 08/03/19 05:00 BMP - BASIC METABOLIC PANEL [CHEM] DAILYLAB CBC - COMP BLD CT W/AUTO DIFF [HEME] DAILYLAB 07/31/19 Palliative Care Consult [CONS] Routine 07/31/19 09:09 methylPREDNISolone SUCCINATE [SOLU-Medrol (40MG VIAL)] 60 mg IVP TID 07/31/19 13:39 Sodium Chloride 0.65% [[place]] 2 sprays JANES Q4HR PRN 07/31/19 14:00 Sodium Chloride 0.9% [Normal Saline 0.9%] 1,000 ml IV 100 mls/hr 07/31/19 21:00 POTASSIUM [CHEM] Timed Subjective - Subjective Patient Reports: Feeling Better Objective Vital Signs: Vital Signs - 24 hr 07/30/19 07/30/19 07/30/19 16:04 16:24 16:47 Temperature Heart Rate 90 89 91 Heart Rate [ Brachial] Respiratory 18 20 18 Rate Blood Pressure 115/77 Blood Pressure [Right Brachial artery] O2 Saturation 98 07/30/19 07/30/19 07/30/19 17:04 19:00 20:28 Temperature 36.7 C Heart Rate 91 103 H Heart Rate [ 107 H Brachial] Respiratory 18 18 20 Rate Blood Pressure 109/79 134/75 H Blood Pressure 138/92 H [Right Brachial artery] O2 Saturation 100 97 98 07/30/19 07/30/19 07/31/19 23:00 23:25 00:25 Temperature 36.6 C 36.8 C Heart Rate 73 93 Heart Rate [ 83 Brachial] Respiratory 20 20 16 Rate Blood Pressure Blood Pressure 104/52 L [Right Brachial artery] O2 Saturation 96 95 07/31/19 07/31/19 07/31/19 03:15 03:55 04:00 Temperature 36.6 C Heart Rate 73 Heart Rate [ 88 Brachial] Respiratory 18 20 Rate Blood Pressure Blood Pressure 128/70 [Right Brachial artery] O2 Saturation 97 96 07/31/19 07/31/19 07/31/19 07:46 08:03 11:06 Temperature 36.5 C Heart Rate 85 Heart Rate [ 80 Brachial] Respiratory 16 18 Rate Blood Pressure Blood Pressure 101/55 L [Right Brachial artery] O2 Saturation 97 96 07/31/19 07/31/19 07/31/19 11:40 12:33 14:59 Temperature 36.5 C Heart Rate 74 82 Heart Rate [ 104 H Brachial] Respiratory 16 20 16 Rate Blood Pressure Blood Pressure 140/66 H [Right Brachial artery] O2 Saturation 93 07/31/19 15:36 Temperature 36.6 C Heart Rate Heart Rate [ 84 Brachial] Respiratory 20 Rate Blood Pressure Blood Pressure 131/58 H [Right Brachial artery] O2 Saturation 99 Oxygen O2 Source Nasal cannula Oxygen Flow Rate 4 I&O (Last 24 Hrs): Intake and Output Totals x24h 07/29/19 07/30/19 07/31/19 23:59 23:59 23:59 Intake Total 450 780 Balance 450 780 General: Alert, Oriented x3, No acute distress HEENT: Atraumatic, PERRLA, EOMI Neck: Supple Lymphatic: no adenopathy Neuro: Alert, Non Focal, Oriented Times 3 Cardiovascular: Regular rate, Normal S1, Normal S2 Respiratory: Chest non-tender, No respiratory distress Abdomen: Normal bowel sounds, Soft - Results Results: Laboratory Results WBC 14.1 x10^3/uL (4.8-10.8) H 07/31/19 05:23 RBC 4.07 10^6/uL (4.70-6.10) L 07/31/19 05:23 Hgb 11.5 g/dL (14.0-18.0) L 07/31/19 05:23 Hct 37.7 % (42.0-52.0) L 07/31/19 05:23 MCV 92.6 fL (80.0-94.0) 07/31/19 05:23 MCH 28.3 pg (27.0-31.0) 07/31/19 05:23 MCHC 30.5 g/dL (32.0-36.0) L 07/31/19 05:23 RDW 15.2 % (12.0-15.0) H 07/31/19 05:23 Plt Count 323 10^3/uL (130-450) 07/31/19 05:23 MPV 8.6 fL (7.4-11.4) 07/31/19 05:23 Neut # (Auto) 12.8 10^3/uL (1.5-6.6) H 07/31/19 05:23 Lymph # (Auto) 0.5 10^3/uL (1.5-3.5) L 07/31/19 05:23 [place] # (Auto) 0.7 10^3/uL (0.0-1.0) 07/31/19 05:23 Eos # (Auto) 0.0 10^3/uL (0.0-0.7) 07/31/19 05:23 Baso # (Auto) 0.0 10^3/uL (0.0-0.1) 07/31/19 05:23 Absolute Nucleated RBC 0.00 x10^3/uL 07/31/19 05:23 Nucleated RBC % 0.0 /100WBC 07/31/19 05:23 Sodium 133 mmol/L (135-145) L 07/31/19 05:23 Potassium 5.8 mmol/L (3.5-5.0) H 07/31/19 13:21 Chloride 96 mmol/L (101-111) L 07/31/19 05:23 Carbon Dioxide 27 mmol/L (21-32) 07/31/19 05:23 Anion Gap 10.0 (6-13) 07/31/19 05:23 BUN 21 mg/dL (6-20) H 07/31/19 05:23 Creatinine 1.0 mg/dL (0.6-1.2) 07/31/19 05:23 Estimated GFR (MDRD) 74 (>89) L 07/31/19 05:23 Glucose 207 mg/dL (70-100) H 07/31/19 05:23 POC Whole Bld Glucose 174 mg/dL (70 - 100) H 07/31/19 11:09 Glycated Hemoglobin 8.1 % (4.6-6.2) H 07/31/19 05:23 Estim Average Glucose 186 (70-100) H 07/31/19 05:23 Calcium 8.7 mg/dL (8.5-10.3) 07/31/19 05:23 Phosphorus 4.4 mg/dL (2.5-4.6) 07/31/19 05:23 Magnesium 2.4 mg/dL (1.7-2.8) 07/31/19 05:23 Total Bilirubin 0.4 mg/dL (0.2-1.0) 07/30/19 15:29 AST 22 IU/L (10-42) 07/30/19 15:29 ALT 21 IU/L (10-60) 07/30/19 15:29 Alkaline Phosphatase 64 IU/L (42-121) 07/30/19 15:29 Troponin I High Sens 6.8 ng/L (2.3-19.7) 07/30/19 15:29 B-Natriuretic Peptide 34 pg/mL (5-100) 07/30/19 15:29 Total Protein 7.6 g/dL (6.7-8.2) 07/30/19 15:29 Albumin 4.1 g/dL (3.2-5.5) 07/30/19 15:29 Globulin 3.5 g/dL (2.1-4.2) 07/30/19 15:29 Albumin/Globulin Ratio 1.2 (1.0-2.2) 07/30/19 15:29 Lipase 26 U/L (22-51) 07/30/19 15:29 Influenza A (Rapid) Negative (Negative) 07/30/19 16:00 Influenza B (Rapid) Negative (Negative) 07/30/19 16:00 ABX Reporting Has patient been on IV antibiotics over the past 48 hours?: Yes Current Medications - Current Medications Current Medications: Active Medications Acetaminophen (Tylenol) 650 mg PO Q4HR PRN PRN Reason: Pain 1 to 4 Acetaminophen/Codeine Phosphate (Tylenol #3) 1 tab PO Q6HR PRN PRN Reason: PAIN Last Admin: 07/31/19 13:30 Dose: 1 tab Albuterol () 2.5 mg INH RTQ4H PRN PRN Reason: Wheezing Albuterol/Ipratropium (Duoneb) 3 ml INH RTQ4H NAYELI Last Admin: 07/31/19 14:59 Dose: 3 ml Benzonatate (Tessalon) 100 mg PO TID PRN PRN Reason: Cough Last Admin: 07/31/19 09:09 Dose: 100 mg Budesonide (Pulmicort) 0.5 mg INH RTBID NAYELI Enoxaparin Sodium (Lovenox) 40 mg SUBQ DAILY [facility] Last Admin: 07/31/19 09:08 Dose: 40 mg Formoterol Fumarate (Perforomist) 20 mcg INH RTBID NAYELI Sodium Chloride (Normal Saline 0.9%) 1,000 mls @ 100 mls/hr IV .Q10H [facility] Stop: 08/01/19 09:59 Last Admin: 07/31/19 14:54 Dose: 100 mls/hr Insulin Aspart (Novolog) 1 - 9 unit SUBQ 0800,1200,1700,2100 [facility]; Protocol Last Admin: 07/31/19 17:24 Dose: 3 unit Insulin Glargine (Lantus Solostar) 5 unit SUBQ QPM [facility] Last Admin: 07/30/19 21:16 Dose: 5 unit Levofloxacin (Levaquin) 750 mg PO DAILY [facility] Last Admin: 07/31/19 09:08 Dose: 750 mg Methylprednisolone (Solu-Medrol (40mg Vial)) 60 mg IVP TID [facility] Last Admin: 07/31/19 17:23 Dose: 60 mg Sodium Chloride (Normal Saline Flush 0.9%) 10 ml IVP PRN PRN PRN Reason: NEEDED PER PROVIDER ORDERS Last Admin: 07/31/19 14:55 Dose: 10 ml Sodium Chloride (Normal Saline Flush 0.9%) 10 ml IVP 0100,0900,1700 [facility] Last Admin: 07/31/19 17:23 Dose: 10 ml Sodium Chloride ([place]) 2 sprays JANES Q4HR PRN PRN Reason: Nasal Congestion Last Admin: 07/31/19 17:30 Dose: 1 spray Zolpidem Tartrate (Ambien) 5 mg PO QPM PRN PRN Reason: Insomnia Acetaminophen/Cod 300/30 [Tylenol #3] 1 - 2 tab PO Q6H PRN 09/02/16 Albuterol Sulfate [Proair Hfa Inhaler] 2 puffs INH Q4H PRN 09/02/16 Fluticasone 220 Mcg [Flovent] 2 puffs INH BID 09/02/16 Ipratropium/Albuterol [Combivent Respimat] 1 puffs INH QID 09/02/16 Salmeterol Xinafoate [Serevent Diskus] 1 puffs INH BID 09/02/16 lisinopriL [Lisinopril] 10 mg PO DAILY 09/02/16 metFORMIN [Glucophage] 1,000 mg PO DAILY PM 09/02/16 metFORMIN [Glucophage] 1,500 mg PO QDBREAKFAST 09/02/16 Ascorbic Acid [Vitamin C] 500 mg PO DAILY 07/31/19 Azithromycin 500 mg PO DAILY 07/31/19 Etodolac [Etodolac ER] 500 mg PO DAILY 07/31/19 Pioglitazone [Actos] 15 mg PO DAILY 07/31/19 Potassium/Calcium/Magnes/Manga [Emergen-C Electro Mix Packet] 1 each PO DAILY 07/31/19
--- NOTE | 2019-07-31 16:24 | PHARMACY PROGRESS NOTE ---
- Best Possible Medication History Admit Date and Time: 07/31/19 4506 Processed by: Pharmacy Medication History completed: Yes Patient Interview: Pt interview ONLY source As the person ultimately responsible for medication therapy, providers are able to order a medication from an existing home medication list in [facility] via the "Reconcile Routine" prior to Confirmation of that medication by academic support director. Such practice is discouraged except when the physician, in their clinical judgment, deems that a medical need exists for a medication without regard to previous use.
[2019-07-31] MEDS ORDERED: ZOLPIDEM 5 MG TABLET PO PRN (16:27)
[2019-07-31] MEDS: BUDESONIDE 0.5 MG/2 ML NEB INH SCH (21:26)
[2019-07-31] MEDS: FORMOTEROL FUMARATE NEB 20 MCG/2 ML INH SCH (21:26)
[2019-07-31] MEDS: INSULIN GLARGINE 300 UNIT/3 ML PEN SUBQ SCH (22:11)
[2019-07-31] MEDS ORDERED: INSULIN REGULAR HUMAN 300 UNIT/3 ML VIAL IVP ONE (22:51)
[2019-07-31] MEDS ORDERED: DEXTROSE 10% 250 ML IV STA (22:51)
[2019-08-01] MEDS: BENZONATATE 100 MG CAPSULE PO PRN (00:35)
[2019-08-01] MEDS: ACETAMINOPHEN/CODEINE 300 MG/30 MG TABLET PO PRN ×3 (00:35→21:10)
[2019-08-01] MEDS: SODIUM CHLORIDE 0.9% 1,000 ML IV SCH (00:36)
[2019-08-01] MEDS: SODIUM CHLORIDE FLUSH 0.9% 10 ML SYRINGE IVP SCH ×3 (00:38→16:48)
[2019-08-01 05:06] LABS: BASOPHILS % (AUTO) 0.2 %; HGB - HEMOGLOBIN 11.6 g/dL (14.0-18.0); LYMPHOCYTES # (AUTO) 0.4 10^3/uL (1.5-3.5); LYMPHOCYTES % (AUTO) 2.9 %; MEAN CORPUSCULAR HEMOGLOBIN 28.4 pg (27.0-31.0); MEAN CORPUSCULAR HGB CONC 30.9 g/dL (32.0-36.0); MEAN CORPUSCULAR VOLUME 91.9 fL (80.0-94.0); MEAN PLATELET VOLUME 8.3 fL (7.4-11.4); MONOCYTES # (AUTO) 0.6 10^3/uL (0.0-1.0); MONOCYTES % (AUTO) 4.2 %; NEUTROPHILS # (AUTO) 12.4 10^3/uL (1.5-6.6); NEUTROPHILS % (AUTO) 91.8 %; PLT - PLATELET COUNT 332 10^3/uL (130-450); RED BLOOD COUNT 4.09 10^6/uL (4.70-6.10); WHITE BLOOD COUNT 13.5 x10^3/uL (4.8-10.8)
[2019-08-01 05:16] LABS: CREATININE 0.9 mg/dL (0.6-1.2)
[2019-08-01] MEDS: BUDESONIDE 0.5 MG/2 ML NEB INH SCH ×2 (05:30→21:40)
[2019-08-01] MEDS: FORMOTEROL FUMARATE NEB 20 MCG/2 ML INH SCH ×2 (05:30→21:40)
[2019-08-01] MEDS: IPRATROPIUM/ALBUTEROL 3 ML NEB INH SCH ×4 (05:30→21:40)
[2019-08-01] MEDS: methylPREDNISolone SUCCINATE 40 MG/ML VIAL IVP SCH ×3 (06:03→21:11)
[2019-08-01] MEDS ORDERED: SODIUM POLYSTYRENE SULFONATE 15 GM/60 ML BOTTLE PO SCH (07:56)
[2019-08-01] MEDS ORDERED: ALBUTEROL NEB 2.5 MG/3 ML INH SCH (08:03)
[2019-08-01] MEDS: INSULIN ASPART 300 UNIT/3 ML PEN SUBQ SCH ×4 (08:29→21:12)
[2019-08-01] MEDS: ENOXAPARIN 40 MG/0.4 ML SYRINGE SUBQ SCH (08:40)
[2019-08-01] MEDS: levoFLOXacin 250 MG TABLET PO SCH (08:40)
[2019-08-01] MEDS ORDERED: INSULIN ASPART 300 UNIT/3 ML PEN SUBQ SCH (12:15)
[2019-08-01] MEDS: LORazepam 0.5 MG TABLET PO PRN ×2 (14:02→21:10)
[2019-08-01] MEDS: SODIUM CHLORIDE FLUSH 0.9% 10 ML SYRINGE IVP PRN (14:02)
--- NOTE | 2019-08-01 16:21 | PROVIDER PROGRESS NOTE ---
Assessment/Plan - Problem List (1) COPD exacerbation Assessment/Plan: 08/01 pt report he felt more SOB, felt more respiratory distress. CXR reveals unchanged. continue IV of solu-metrol continue INH treatment pt still report SOB, increase of steroid dosage to 60 mg tid from 40 mg bid. pt took 60 mg Prednisone at home and failed resume home INH steroid, long acting beta-agonist, and albuterol continue supplement of O2 (2) Hyperkalemia Conclusion/Plan: 08/01 resolved. INH albuterol 10mg for once and insulin once with D10. hyperkalemia is likely caused by pt's increased steroid usage. continue increase, unknown etiology, pt is on insulin and beta-agonist. order K aylaxine continue lab monitor (3) Chronic respiratory failure with hypoxia Conclusion/Plan: 08/01able sats on supplement of O2 continue home INH steroid, long acting beta-agonist, and albuterol continue supplement of O2 pt present SOB, increase of steroid dosage to 60 mg tid from 40 mg bid. pt took 60 mg Prednisone at home and failed resume home INH steroid, long acting beta-agonist, and albuterol continue supplement of O2 (4) Lower extremity edema Conclusion/Plan: stable. pt has no issue to walk. advise rise his legs and Will consider compression stockings if patient is agreeable. 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 Concern for right upper lobe lung nodule on the chest x-ray. The patient has been getting outpatient CT scans of the chest every 3 months and is scheduled for 1 in 2 weeks. I did inform him that chest x-ray was concerning for possible nodule. He states he will follow-up with his tour bus driver. (7)anxiety pt present anxiety, pt has increased steroid usage for his COPD add ativan PRN for anxiety - Current Meds Current Meds: Current Medications Generic Name Dose Route Start Last Admin Trade Name Freq PRN Reason Stop Dose Admin Acetaminophen/Codeine Phosphate 1 tab 07/30/19 21:29 08/01/19 06:09 Tylenol #3 PO 1 tab Q6HR PRN Administration PAIN Albuterol/Ipratropium 3 ml 07/31/19 11:00 08/01/19 12:56 Duoneb INH 3 ml RTQ4H NAYELI Administration Benzonatate 100 mg 07/30/19 19:52 08/01/19 00:35 Tessalon PO 100 mg TID PRN Administration Cough Budesonide 0.5 mg 07/31/19 19:00 08/01/19 05:30 Pulmicort INH 0.5 mg RTBID NAYELI Administration Enoxaparin Sodium 40 mg 07/31/19 09:00 08/01/19 08:40 Lovenox SUBQ 40 mg DAILY NAYELI Administration Formoterol Fumarate 20 mcg 07/31/19 19:00 08/01/19 05:30 Perforomist INH 20 mcg RTBID NAYELI Administration Insulin Aspart 1 - 9 unit 07/30/19 21:00 08/01/19 11:07 Novolog SUBQ 9 unit 0800,1200,1700,2100 NAYELI Administration Protocol Insulin Glargine 5 unit 07/30/19 21:00 07/31/19 22:11 Lantus Solostar SUBQ 5 unit QPM NAYELI Administration Levofloxacin 750 mg 07/31/19 09:00 08/01/19 08:40 Levaquin PO 750 mg DAILY NAYELI Administration Lorazepam 0.5 mg 08/01/19 12:47 08/01/19 14:02 Ativan PO 0.5 mg Q6H PRN Administration Anxiety Methylprednisolone 60 mg 07/31/19 09:09 08/01/19 14:01 Solu-Medrol (40mg Vial) IVP 60 mg TID NAYELI Administration Sodium Chloride 10 ml 07/30/19 19:47 08/01/19 14:02 Normal Saline Flush 0.9% IVP 10 ml PRN PRN Administration NEEDED PER PROVIDER ORDERS Sodium Chloride 10 ml 07/31/19 01:00 08/01/19 08:40 Normal Saline Flush 0.9% IVP 10 ml 0100,0900,1700 NAYELI Administration Sodium Chloride 2 sprays 07/31/19 13:39 07/31/19 17:30 [place] JANES 1 spray Q4HR PRN Administration Nasal Congestion - Lab Result Fish Bone Diagrams: 08/01/19 04:55 08/01/19 13:11 - Additional Planning My Orders: My Active Orders 08/01/19 08:03 Resp Teach Nebulizer/MDI [RC] .ONCE 08/01/19 12:47 LORazepam [Ativan] 0.5 mg PO Q6H PRN 08/02/19 05:00 BMP - BASIC METABOLIC PANEL [CHEM] DAILYLAB CBC - COMP BLD CT W/AUTO DIFF [HEME] DAILYLAB 08/03/19 05:00 BMP - BASIC METABOLIC PANEL [CHEM] DAILYLAB CBC - COMP BLD CT W/AUTO DIFF [HEME] DAILYLAB 07/31/19 19:00 Budesonide [Pulmicort] 0.5 mg INH RTBID Formoterol Fumarate [Perforomist] 20 mcg INH RTBID Subjective - Subjective Patient Reports: Shortness of Breath Objective Vital Signs: Vital Signs - 24 hr 07/31/19 07/31/19 08/01/19 19:00 21:19 00:09 Temperature 36.8 C 36.5 C Heart Rate 92 Heart Rate [ 87 85 Brachial] Respiratory 20 16 20 Rate Blood Pressure 130/73 [Left Brachial artery] Blood Pressure 103/81 H [Right Brachial artery] O2 Saturation 97 98 08/01/19 08/01/19 08/01/19 05:00 05:18 07:25 Temperature 36.2 C L 36.5 C Heart Rate 75 Heart Rate [ 85 76 Brachial] Respiratory 18 20 18 Rate Blood Pressure 140/74 H [Left Brachial artery] Blood Pressure 108/65 [Right Brachial artery] O2 Saturation 98 96 08/01/19 08/01/19 08/01/19 09:01 11:00 13:00 Temperature 36.6 C Heart Rate 84 114 H Heart Rate [ 104 H Brachial] Respiratory 16 18 16 Rate Blood Pressure [Left Brachial artery] Blood Pressure 122/66 [Right Brachial artery] O2 Saturation 96 08/01/19 15:44 Temperature 36.7 C Heart Rate Heart Rate [ 100 Brachial] Respiratory 20 Rate Blood Pressure [Left Brachial artery] Blood Pressure 131/81 H [Right Brachial artery] O2 Saturation 98 Oxygen O2 Source Nasal cannula Oxygen Flow Rate 4 I&O (Last 24 Hrs): Intake and Output Totals x24h 07/30/19 07/31/19 08/01/19 23:59 23:59 23:59 Intake Total 450 1230 3993.333 Output Total 600 1650 Balance 804 236 9990.333 General: Alert, Mild distress HEENT: Atraumatic, PERRLA Neck: Supple Lymphatic: no adenopathy Neuro: Alert, Non Focal, Oriented Times 3 Cardiovascular: Regular rate, Normal S1, Normal S2 Respiratory: Chest non-tender Abdomen: Normal bowel sounds, Soft Extremities: Normal pulses - Results Results: Laboratory Results WBC 13.5 x10^3/uL (4.8-10.8) H 08/01/19 04:55 RBC 4.09 10^6/uL (4.70-6.10) L 08/01/19 04:55 Hgb 11.6 g/dL (14.0-18.0) L 08/01/19 04:55 Hct 37.6 % (42.0-52.0) L 08/01/19 04:55 MCV 91.9 fL (80.0-94.0) 08/01/19 04:55 MCH 28.4 pg (27.0-31.0) 08/01/19 04:55 MCHC 30.9 g/dL (32.0-36.0) L 08/01/19 04:55 RDW 15.0 % (12.0-15.0) 08/01/19 04:55 Plt Count 332 10^3/uL (130-450) 08/01/19 04:55 MPV 8.3 fL (7.4-11.4) 08/01/19 04:55 Neut # (Auto) 12.4 10^3/uL (1.5-6.6) H 08/01/19 04:55 Lymph # (Auto) 0.4 10^3/uL (1.5-3.5) L 08/01/19 04:55 [place] # (Auto) 0.6 10^3/uL (0.0-1.0) 08/01/19 04:55 Eos # (Auto) 0.0 10^3/uL (0.0-0.7) 08/01/19 04:55 Baso # (Auto) 0.0 10^3/uL (0.0-0.1) 08/01/19 04:55 Absolute Nucleated RBC 0.00 x10^3/uL 08/01/19 04:55 Nucleated RBC % 0.0 /100WBC 08/01/19 04:55 Sodium 137 mmol/L (135-145) 08/01/19 04:55 Potassium 4.6 mmol/L (3.5-5.0) 08/01/19 13:11 Chloride 102 mmol/L (101-111) 08/01/19 04:55 Carbon Dioxide 28 mmol/L (21-32) 08/01/19 04:55 Anion Gap 7.0 (6-13) 08/01/19 04:55 BUN 19 mg/dL (6-20) 08/01/19 04:55 Creatinine 0.9 mg/dL (0.6-1.2) 08/01/19 04:55 Estimated GFR (MDRD) 84 (>89) L 08/01/19 04:55 Glucose 113 mg/dL (70-100) H 08/01/19 04:55 POC Whole Bld Glucose 329 mg/dL (70 - 100) H 08/01/19 10:58 Glycated Hemoglobin 8.1 % (4.6-6.2) H 07/31/19 05:23 Estim Average Glucose 186 (70-100) H 07/31/19 05:23 Calcium 9.0 mg/dL (8.5-10.3) 08/01/19 04:55 Phosphorus 4.4 mg/dL (2.5-4.6) 07/31/19 05:23 Magnesium 2.4 mg/dL (1.7-2.8) 07/31/19 05:23 Total Bilirubin 0.4 mg/dL (0.2-1.0) 07/30/19 15:29 AST 22 IU/L (10-42) 07/30/19 15:29 ALT 21 IU/L (10-60) 07/30/19 15:29 Alkaline Phosphatase 64 IU/L (42-121) 07/30/19 15:29 Troponin I High Sens 6.8 ng/L (2.3-19.7) 07/30/19 15:29 B-Natriuretic Peptide 34 pg/mL (5-100) 07/30/19 15:29 Total Protein 7.6 g/dL (6.7-8.2) 07/30/19 15:29 Albumin 4.1 g/dL (3.2-5.5) 07/30/19 15:29 Globulin 3.5 g/dL (2.1-4.2) 07/30/19 15:29 Albumin/Globulin Ratio 1.2 (1.0-2.2) 07/30/19 15:29 Lipase 26 U/L (22-51) 07/30/19 15:29 Influenza A (Rapid) Negative (Negative) 07/30/19 16:00 Influenza B (Rapid) Negative (Negative) 07/30/19 16:00 ABX Reporting Has patient been on IV antibiotics over the past 48 hours?: Yes Current Medications - Current Medications Current Medications: Active Medications Acetaminophen (Tylenol) 650 mg PO Q4HR PRN PRN Reason: Pain 1 to 4 Acetaminophen/Codeine Phosphate (Tylenol #3) 1 tab PO Q6HR PRN PRN Reason: PAIN Last Admin: 08/01/19 21:10 Dose: 1 tab Albuterol () 2.5 mg INH RTQ4H PRN PRN Reason: Wheezing Albuterol/Ipratropium (Duoneb) 3 ml INH RTQ4H NAYELI Last Admin: 08/01/19 21:40 Dose: 3 ml Benzonatate (Tessalon) 100 mg PO TID PRN PRN Reason: Cough Last Admin: 08/01/19 00:35 Dose: 100 mg Budesonide (Pulmicort) 0.5 mg INH RTBID [facility] Last Admin: 08/01/19 21:40 Dose: 0.5 mg Enoxaparin Sodium (Lovenox) 40 mg SUBQ DAILY [facility] Last Admin: 08/01/19 08:40 Dose: 40 mg Formoterol Fumarate (Perforomist) 20 mcg INH RTBID [facility] Last Admin: 08/01/19 21:40 Dose: 20 mcg Insulin Aspart (Novolog) 1 - 9 unit SUBQ 0800,1200,1700,2100 [facility]; Protocol Last Admin: 08/01/19 21:12 Dose: 5 unit Insulin Glargine (Lantus Solostar) 5 unit SUBQ QPM [facility] Last Admin: 08/01/19 21:12 Dose: 5 unit Levofloxacin (Levaquin) 750 mg PO DAILY [facility] Last Admin: 08/01/19 08:40 Dose: 750 mg Lorazepam (Ativan) 0.5 mg PO Q6H PRN PRN Reason: Anxiety Last Admin: 08/01/19 21:10 Dose: 0.5 mg Methylprednisolone (Solu-Medrol (40mg Vial)) 60 mg IVP TID [facility] Last Admin: 08/01/19 21:11 Dose: 60 mg Sodium Chloride (Normal Saline Flush 0.9%) 10 ml IVP PRN PRN PRN Reason: NEEDED PER PROVIDER ORDERS Last Admin: 08/01/19 14:02 Dose: 10 ml Sodium Chloride (Normal Saline Flush 0.9%) 10 ml IVP 0100,0900,1700 [facility] Last Admin: 08/01/19 16:48 Dose: 10 ml Sodium Chloride ([place]) 2 sprays JANES Q4HR PRN PRN Reason: Nasal Congestion Last Admin: 07/31/19 17:30 Dose: 1 spray Temazepam (Restoril) 15 mg PO QPM PRN PRN Reason: Insomnia Acetaminophen/Cod 300/30 [Tylenol #3] 1 - 2 tab PO Q6H PRN 09/02/16 Albuterol Sulfate [Proair Hfa Inhaler] 2 puffs INH Q4H PRN 09/02/16 Fluticasone 220 Mcg [Flovent] 2 puffs INH BID 09/02/16 Ipratropium/Albuterol [Combivent Respimat] 1 puffs INH QID 09/02/16 Salmeterol Xinafoate [Serevent Diskus] 1 puffs INH BID 09/02/16 lisinopriL [Lisinopril] 10 mg PO DAILY 09/02/16 metFORMIN [Glucophage] 1,000 mg PO DAILY PM 09/02/16 metFORMIN [Glucophage] 1,500 mg PO QDBREAKFAST 09/02/16 Ascorbic Acid [Vitamin C] 500 mg PO DAILY 07/31/19 Azithromycin 500 mg PO DAILY 07/31/19 Etodolac [Etodolac ER] 500 mg PO DAILY 07/31/19 Pioglitazone [Actos] 15 mg PO DAILY 07/31/19 Potassium/Calcium/Magnes/Manga [Emergen-C Electro Mix Packet] 1 each PO DAILY 07/31/19
[2019-08-01] MEDS ORDERED: TEMAZEPAM 15 MG CAPSULE PO PRN (21:00)
--- NOTE | 2019-08-01 21:06 | XRAY Report ---
Reason: SOB Procedure Date: 08/01/2019 Accession Number: [id number] / [id number] Procedure: XR - Chest 1 View X-Ray CPT Code: 42701 Final Report FULL RESULT: EXAM: CHEST RADIOGRAPHY EXAM DATE: 08/01/2019 06:00 PM. CLINICAL HISTORY: Shortness of breath COMPARISON: CHEST 1 VIEW 07/30/2019 3:38 PM. TECHNIQUE: 1 view. FINDINGS: Lungs/Pleura: The stellate-like opacity in the right upper lobe is reidentified. The lungs are hyperinflated with emphysematous changes. Bibasilar parenchymal scarring versus atelectasis is unchanged. There is no pleural effusion or pneumothorax. Mediastinum: Within exam limitations, the cardiomediastinal contour is normal. Other: None. IMPRESSION: Unchanged stellate-like right upper lobe nodule. Recommend chest CT for further evaluation. Unchanged bibasilar opacities, likely scar versus atelectasis. [facility]
[2019-08-01] MEDS: INSULIN GLARGINE 300 UNIT/3 ML PEN SUBQ SCH (21:12)
[2019-08-02] MEDS: BENZONATATE 100 MG CAPSULE PO PRN (00:16)
[2019-08-02] MEDS: SODIUM CHLORIDE FLUSH 0.9% 10 ML SYRINGE IVP SCH ×2 (00:17→08:06)
[2019-08-02] MEDS: ACETAMINOPHEN/CODEINE 300 MG/30 MG TABLET PO PRN (03:35)
[2019-08-02] MEDS: methylPREDNISolone SUCCINATE 40 MG/ML VIAL IVP SCH ×2 (05:39→14:18)
[2019-08-02 05:43] LABS: BASOPHILS % (AUTO) 0.2 %; HGB - HEMOGLOBIN 11.1 g/dL (14.0-18.0); LYMPHOCYTES # (AUTO) 0.4 10^3/uL (1.5-3.5); LYMPHOCYTES % (AUTO) 3.1 %; MEAN CORPUSCULAR HEMOGLOBIN 28.1 pg (27.0-31.0); MEAN CORPUSCULAR HGB CONC 30.4 g/dL (32.0-36.0); MEAN CORPUSCULAR VOLUME 92.4 fL (80.0-94.0); MEAN PLATELET VOLUME 8.3 fL (7.4-11.4); MONOCYTES # (AUTO) 0.7 10^3/uL (0.0-1.0); MONOCYTES % (AUTO) 4.8 %; NEUTROPHILS # (AUTO) 12.7 10^3/uL (1.5-6.6); PLT - PLATELET COUNT 343 10^3/uL (130-450); RED BLOOD COUNT 3.95 10^6/uL (4.70-6.10); RED CELL DISTRIBUTION WIDTH 14.9 % (12.0-15.0)
[2019-08-02 05:51] LABS: CALCIUM 8.7 mg/dL (8.5-10.3); CREATININE 0.8 mg/dL (0.6-1.2)
[2019-08-02] MEDS: FORMOTEROL FUMARATE NEB 20 MCG/2 ML INH SCH (06:04)
[2019-08-02] MEDS: IPRATROPIUM/ALBUTEROL 3 ML NEB INH SCH ×3 (06:04→15:09)
[2019-08-02] MEDS: BUDESONIDE 0.5 MG/2 ML NEB INH SCH (06:04)
[2019-08-02] MEDS ORDERED: SODIUM POLYSTYRENE SULFONATE 15 GM/60 ML BOTTLE PO SCH (07:42)
[2019-08-02] MEDS: ACETAMINOPHEN 325 MG TABLET PO PRN ×2 (08:06→14:14)
[2019-08-02] MEDS: ENOXAPARIN 40 MG/0.4 ML SYRINGE SUBQ SCH (08:06)
[2019-08-02] MEDS: LORazepam 0.5 MG TABLET PO PRN ×2 (08:07→14:14)
[2019-08-02] MEDS: levoFLOXacin 250 MG TABLET PO SCH (08:07)
[2019-08-02] MEDS: INSULIN ASPART 300 UNIT/3 ML PEN SUBQ SCH ×2 (08:08→12:57)
[2019-08-02 11:50] VITALS: BP 122/74
--- NOTE | 2019-08-02 13:36 | Discharge Plan ---
Discharge Plan Problem Reviewed?: Yes Disposition: Home, Self Care Condition: Poor Prescriptions: Albuterol 2.5 mg INH RTQ4H PRN #50 neb PRN Reason: Wheezing Budesonide [Pulmicort] 0.5 mg INH RTBID #50 neb Ipratropium/Albuterol [Duoneb] 3 ml INH RTQ4H PRN #50 neb PRN Reason: Shortness Of Air/Wheezing Diet: Diabetic Activity Restrictions: Activity as Tolerated Shower Restrictions: No (fall precaution) Instruction Topics: COPD, Hyperkalemia Dc Health Concerns: COPD, hyperkalemia Plan of Treatment: you are prescribed nebulization machine and medications: albuterol, Duoneb, and pulmicort for your COPD treatment, per your request when you can not use your inhaler. recheck your potassium level in one week when you followup your PCP in one week. Your potassium is 5.1 on today, normal arrange 3.5-5.0. Care Goals: stabilization and improvement of your medical conditions Assessment: discussed with you about the care plan, you understood the plan Additional Instructions or Follow Up instructions: you may followup your PCP in one week, check your potassium level in one week as well. you may followup your sales enablement specialist as your schedule and monitor your pulmonary nodule. Should your symptoms return or worsen, you may present ER or call 911 for help. No Smoking: If you smoke, Please STOP! Call for help. Follow-up with: Mert Razo MD [Primary Care Provider] -
--- NOTE | 2019-08-02 13:54 | DISCHARGE SUMMARY ---
"Discharge Summary Admit Date: 07/30/19 Discharge Date: 08/02/19 Discharging Provider: ESTRADA Primary Care Provider: Dr. Razo Discharge Disposition: 01 Home, Self Care Discharge Facility Name: home - DIAGNOSES Admission Diagnoses: (1) COPD exacerbation (2) Hyperkalemia (3) Chronic respiratory failure with hypoxia (4) Lower extremity edema (5) Diabetes mellitus type II, non insulin dependent (6) Right upper lobe pulmonary nodule Discharge Diagnoses with Status of Each Condition: (1) COPD exacerbation stable. pt has no respiratory distress. he has 96% sats on 2 liter of O2. pt take 2-3 liter of O2 at home. pt is prescribed nebulization machine for his COPD. pt is also prescribed albuterol, pulmicort, Duoneb solution for nebulization machine to use. pt has steroid and antibiotics in his home meds list (2) Hyperkalemia K is 5.1 on d/c. it is likely from high dosage steroid used in hospital. 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 Palliative care did consult for him, and advise pt followup. - HPI History of Present Illness: refer from 's HPI on 07/30/19 This is a 69-year-old male with a past medical history significant for COPD on 2 L of oxygen, type 2 diabetes who presents today complaining of worsening shortness of breath over the past 5 days. States he first developed flulike symptoms about 1 week ago. He had chills, malaise, body aches. He then started to feel short of breath about 2 days later. He is on chronic prednisone 20 mg daily and he increase this to 60 mg with some improvement in his symptoms. He also began taking Bactrim orally that he had available at the pharmacy. He said he felt better on Tuesday but that his dyspnea returned and has progressively become more severe and so he sought medical attention today. He has been on chronic steroids for many years. 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 He follows with Dr. Lebron Martinez at the [facility]. He no longer smokes but did smoke about a pack and 1/2 to 3 packs a day for around 30 years. He wears 2 L of oxygen at baseline and uses 3 L with exertion. This is his second hospitalization for COPD exacerbation with his last being about 2 years ago. He reports feeling dyspneic at rest but it is more prominent with exertion. He is also had a productive cough with beige sputum. He does report left-sided chest pain that is pleuritic in nature and is most profound with a deep inspiration. The pain is pressure-like in nature. He reports no prior cardiac history. He states he had a stress test about 2 years ago which was unremarkable. He is also complaining of lower extremity edema but he states this is chronic for him. It becomes more profound when he consumes more salt in his diet. He denies orthopnea. He reports no nausea, vomiting, abdominal pain, diarrhea. In the emergency department, he is found to be afebrile with temperature of the 37.1. He was tachycardic with a heart rate of 93. Blood pressure was 131/71. He was slightly tachypneic with a respiratory of 20 and he was saturating 98% on 4 L of oxygen. Labs were unremarkable except for potassium of 5.6. Influenza was negative. A chest x-ray did not reveal an obvious infiltrate. He was treated with Decadron p.o. as well as a few breathing treatments with only mild improvement. He still felt quite dyspneic with exertion and his oxygen durations dropped to the 80s and therefore medicine was consulted for admission. - CONSULTS | PROCEDURES Consultations: palliative care provider Ursula Egan Procedures: palliative care - HOSPITAL COURSE Hospital Course: pt was admitted of shortness of breath. pt has hx of advanced COPD. pt was treated with IV of steroid, breath treatment, supplement of O2. pt take O2 at home. pt also developed elevated potassium, hyperkalemia. it is likely from incr eased usage of steroid. pt was treated with insulin, Kayexalate. then pt's potassium is down to 5.1. pt has no IV of steroid at home and steroid dosage is reduced as well. pt is advised to see his PCP to recheck potassium level. The detail hospital course is as the following. (1) COPD exacerbation stable. pt has no respiratory distress. he has 96% sats on 2 liter of O2. pt take 2-3 liter of O2 at home. pt is prescribed nebulization machine for his COPD. pt is also prescribed albuterol, pulmicort, Duoneb solution for nebulization machine to use. pt has steroid and antibiotics in his home meds list (2) Hyperkalemia K is 5.1 on d/c. it is likely from high dosage steroid used in hospital. 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 Palliative care did consult for him, and advise pt followup. - ALLERGIES Allergies/Adverse Reactions: Allergies Allergy/AdvReac Type Severity Reaction Status Date / Time ciprofloxacin [From Cipro] Allergy Unknown Verified 07/30/19 14:21 ciprofloxacin HCl * Allergy Unknown Verified 07/30/19 14:21 [From Cipro] hydromorphone HCl * Allergy Unknown Verified 07/30/19 14:21 [From Dilaudid] oxycodone Allergy Unknown Verified 07/30/19 14:21 oxycodone HCl * Allergy Unknown Verified 07/30/19 14:21 [From OxyContin] - MEDICATIONS Home Medications: Ambulatory Orders Medication Instructions Recorded Confirmed Acetaminophen/Cod 300/30 [Tylenol 1 - 2 tab PO Q6H PRN 09/02/16 07/31/19 #3] Albuterol Sulfate [Proair Hfa 2 puffs INH Q4H PRN 09/02/16 07/31/19 Inhaler] Fluticasone 220 Mcg [Flovent] 2 puffs INH BID 09/02/16 07/31/19 Ipratropium/Albuterol [Combivent 1 puffs INH QID 09/02/16 07/31/19 Respimat] Salmeterol Xinafoate [Serevent 1 puffs INH BID 09/02/16 07/31/19 Diskus] lisinopriL [Lisinopril] 10 mg PO DAILY 09/02/16 07/31/19 metFORMIN [Glucophage] 1,000 mg PO DAILY PM 09/02/16 07/31/19 metFORMIN [Glucophage] 1,500 mg PO QDBREAKFAST 09/02/16 07/31/19 Benzonatate [Tessalon] 100 mg PO TID #30 capsule 09/06/16 07/31/19 diazePAM [Valium] 5 mg PO QPM #30 tablet 09/06/16 07/31/19 predniSONE [Deltasone] 20 mg PO DAILYWM #10 tablet 09/06/16 07/31/19 Ascorbic Acid [Vitamin C] 500 mg PO DAILY 07/31/19 07/31/19 Azithromycin 500 mg PO DAILY 07/31/19 07/31/19 Etodolac [Etodolac ER] 500 mg PO DAILY 07/31/19 07/31/19 Pioglitazone [Actos] 15 mg PO DAILY 07/31/19 07/31/19 Albuterol 2.5 mg INH RTQ4H PRN #50 neb 08/02/19 Budesonide [Pulmicort] 0.5 mg INH RTBID #50 neb 08/02/19 Ipratropium/Albuterol [Duoneb] 3 ml INH RTQ4H PRN #50 neb 08/02/19 - PHYSICAL EXAM AT DISCHARGE General Appearance: positive: No acute distress, Alert. negative: Lethargic Eyes Bilateral: positive: Normal inspection, PERRL, EOMI, No lid inflammation ENT: positive: ENT inspection nml, Pharynx nml, No signs of dehydration. negative: Purulent nasal drainage Neck: positive: Nml inspection, Thyroid nml, No JVD, Trachea midline. negative: Thyromegaly, Lymphadenopathy (R), Lymphadenopathy (L), Stiff neck, Tracheal deviation Respiratory: positive: Chest non-tender, No respiratory distress, Other (diminished lung sound bilaterally). negative: Wheezes, Rales, Rhonchi Cardiovascular: positive: Regular rate & rhythm, No murmur, No gallop. negative: Irregularly irregular, Extrasystoles, Tachycardia, Bradycardia, JVD present, Systolic murmur, Diastolic murmur Peripheral Pulses: positive: 2+ Abdomen: positive: Non-tender, No organomegaly, Nml bowel sounds, No distention. negative: Tenderness, Guarding, Rebound Back: positive: Nml inspection. negative: CVA tenderness (R), CVA tenderness (L) Skin: positive: Color nml, No rash, Warm, Dry. negative: Cyanosis, Diaphoresis, Pallor Extremities: positive: Non-tender, Full ROM, Nml appearance. negative: Calf tenderness, Isaiah's sign/cords Neurologic/Psychiatric: positive: Oriented x3, Motor nml, Sensation nml, Mood/affect nml. negative: Weakness, Sensory loss, Facial droop, Slurred/abnml speech, Depressed mood/affect - LABS Result Diagrams: 08/02/19 05:30 08/02/19 05:30 - FOLLOW UP Follow Up: you are prescribed nebulization machine and medications: albuterol, Duoneb, and pulmicort for your COPD treatment, per your request when you can not use your inhaler. recheck your potassium level in one week when you followup your PCP in one week. Your potassium is 5.1 on today, normal arrange 3.5-5.0. you may followup your PCP in one week, check your potassium level in one week as well. you may followup your highway maintenance supervisor as your schedule and monitor your pulmonary nodule. Should your symptoms return or worsen, you may present ER or call 911 for help. - TIME SPENT Time Spent in Discharge (Minutes): 40"
[2019-08-02] MEDS: SODIUM CHLORIDE FLUSH 0.9% 10 ML SYRINGE IVP PRN (14:19)
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
== END 2019-08-02 15:30 | disposition home or self-care (01) | DRG 191 ==
LOC: ED 13:35 → MS2 19:47 → OBSVTOIN 07-31 13:56
PROVIDERS: ADMIT Internal Medicine; ATTEND Nurse Practitioner Gerontology
DX: J44.1 Chronic obstructive pulmonary disease with (acute) exacerbation (principal); J96.11 Chronic respiratory failure with hypoxia; E87.1 Hypo-osmolality and hyponatremia; E87.5 Hyperkalemia; E11.65 Type 2 diabetes mellitus with hyperglycemia; R91.1 Solitary pulmonary nodule; F41.9 Anxiety disorder, unspecified; K21.9 Gastro-esophageal reflux disease without esophagitis; R60.0 Localized edema; M19.90 Unspecified osteoarthritis, unspecified site; G89.29 Other chronic pain; M54.9 Dorsalgia, unspecified; Z90.2 Acquired absence of lung [part of]; N40.1 Benign prostatic hyperplasia with lower urinary tract symptoms; R35.0 Frequency of micturition; R39.15 Urgency of urination; Z66 Do not resuscitate; F10.11 Alcohol abuse, in remission; H54.7 Unspecified visual loss; Z51.5 Encounter for palliative care; T38.0X5A Adverse effect of glucocorticoids and synthetic analogues, initial encounter; Y92.230 Patient room in hospital as the place of occurrence of the external cause; Z99.81 Dependence on supplemental oxygen; Z79.84 Long term (current) use of oral hypoglycemic drugs; Z79.52 Long term (current) use of systemic steroids; Z79.51 Long term (current) use of inhaled steroids; Z79.2 Long term (current) use of antibiotics; Z87.891 Personal history of nicotine dependence; I25.2 Old myocardial infarction; Z87.820 Personal history of traumatic brain injury; Z87.01 Personal history of pneumonia (recurrent)
CPT/HCPCS: 36415; 71045; 80048; 80053; 83036; 83690; 83735; 83880; 84100; 84132; 84484; 85025; 87275; 87276; 93005; 94640; 96361; 96372; 96374; 96376; 99223; 99285; A9270; G0378; J1650; J1815; J3490; J7626

== ENCOUNTER 2020-11-02 15:32 | Outpatient (CLI) | payer MEDICARE, MEDICAID | END 2020-11-02 15:33 | disposition EMS.NT | LOC: EMS 15:32 | DX: Z03.89 Encounter for observation for other suspected diseases and conditions ruled out (principal) ==

== ENCOUNTER 2021-05-01 02:31 | Outpatient (CLI) | payer MEDICARE, MEDICAID | END 2021-05-01 02:32 | disposition EMS.NT | LOC: EMS 02:31 | DX: S50.902A Unspecified superficial injury of left elbow, initial encounter (principal); W18.39XA Other fall on same level, initial encounter; W22.03XA Walked into furniture, initial encounter; Y93.89 Activity, other specified; Y92.009 Unspecified place in unspecified non-institutional (private) residence as the place of occurrence of the external cause ==

== ENCOUNTER 2021-05-24 01:12 | Outpatient (CLI) | payer MEDICARE, MEDICAID | END 2021-05-24 01:13 | disposition critical access hospital (66) | LOC: EMS 01:12 | DX: R53.83 Other fatigue (principal); R06.02 Shortness of breath; R50.9 Fever, unspecified | CPT/HCPCS: A0425; A0427 ==

== ENCOUNTER 2021-05-24 01:43 | Inpatient (IN) | payer MEDICARE, MEDICAID ==
[2021-05-24] MEDS ORDERED: SODIUM CHLORIDE 0.9% 1,000 ML IV STA (01:52)
[2021-05-24] MEDS ORDERED: ALBUTEROL 1 PUFF INH STA (01:53)
[2021-05-24] MEDS ORDERED: ACETAMINOPHEN 325 MG TABLET PO STA ×2 (01:56→03:10)
[2021-05-24 02:21] LABS: BASOPHILS % (AUTO) 0.9 %; EOSINOPHILS % (AUTO) 3.1 %; HCT - HEMATOCRIT 38.1 % (42.0-52.0); HGB - HEMOGLOBIN 11.6 g/dL (14.0-18.0); LYMPHOCYTES % (AUTO) 12.2 %; MEAN CORPUSCULAR HEMOGLOBIN 29.7 pg (27.0-31.0); MEAN CORPUSCULAR HGB CONC 30.4 g/dL (32.0-36.0); MEAN CORPUSCULAR VOLUME 97.4 fL (80.0-94.0); MEAN PLATELET VOLUME 8.9 fL (7.4-11.4); MONOCYTES % (AUTO) 14.1 %; NEUTROPHILS % (AUTO) 68.6 %; PLT - PLATELET COUNT 329 10^3/uL (130-450); RED BLOOD COUNT 3.91 10^6/uL (4.70-6.10); RED CELL DISTRIBUTION WIDTH 14.7 % (12.0-15.0); WHITE BLOOD COUNT 11.5 x10^3/uL (4.8-10.8)
[2021-05-24 02:35] LABS: ALBUMIN 3.9 g/dL (3.2-5.5); ALBUMIN/GLOBULIN RATIO 1.3 (1.0-2.2); BILIRUBIN,TOTAL 0.6 mg/dL (0.2-1.0); CREATININE 1.8 mg/dL (0.6-1.2); POTASSIUM 5.2 mmol/L (3.5-5.0)
[2021-05-24 02:37] LABS: ABNORMAL LYMPHS % (MANUAL) 0 %
[2021-05-24 02:40] LABS: BAND NEUTROPHILS % (MANUAL) 1 %; DIFFERENTIAL COMMENT MANUAL DIFFERENTIAL; EOSINOPHILS # (MANUAL) 0.2 10^3/uL (0-0.7); LYMPHOCYTES # (MANUAL) 1.5 10^3/uL (1.5-3.5); LYMPHOCYTES % (MANUAL) 13 %; MYELOCYTES % (MANUAL) 2 %; NEUTROPHILS # (MANUAL) 8.5 10^3/uL (1.5-6.6); PLATELET ESTIMATE, MANUAL NORMAL (130-450,000) (NORMAL); PLATELET MORPHOLOGY NORMAL APPEARANCE (NORMAL); RBC MORPHOLOGY (MULTIPLE) NORMAL APPEARANCE (NORMAL); WBC MORPHOLOGY (MULTIPLE) NORMAL APPEARANCE (NORMAL)
[2021-05-24] MEDS ORDERED: CALCIUM GLUCONATE 1000 MG/10 ML VIAL IVP STA (02:44)
[2021-05-24] MEDS ORDERED: DEXTROSE 50% ABBOJECT 25 GM/50 ML SYRINGE IVP STA (02:45)
[2021-05-24] MEDS ORDERED: INSULIN REGULAR HUMAN 100 UNIT/1 ML 10 ML MDV IVP STA (02:46)
[2021-05-24] MEDS ORDERED: SODIUM BICARBONATE ABBOJECT 50 MEQ/50 ML SYRINGE IVP STA (02:46)
--- NOTE | 2021-05-24 02:47 | ED Physician Documentation ---
History of Present Illness - Stated complaint Stated Complaint: SOA - Chief complaint Chief Complaint: Resp - History obtained from History obtained from: Patient - Additonal information Additional information: 71yM with pmh copd on home o2 3L p/w progressively worsening shortness of breath since 05/23 afternoon with productive cough, R sided chest discomfort, increased oxygen requirement 3L to 4L. patient endorses subjective fever/chills. denies n/v/d urinary sx rash back pain, hemoptysis. he has had 2 covid vaccines. note that patient did 2 duoneb treatments at home without significant relief then called 911. 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: None : Benign prostate hypertrophy HEENT: Chronic vision loss Psych: Depression, Anxiety Musculoskeletal: Osteoarthritis, Chronic back pain Derm: None - Past Surgical History Past Surgical History: Yes General: Other (thoracotomy of left lobe with wedge) - Present Medications Home Medications: Ambulatory Orders Medication Instructions Recorded Confirmed Acetaminophen/Cod 300/30 [Tylenol 1 - 2 tab PO Q6H PRN 09/02/16 07/31/19 #3] Albuterol Sulfate [Proair Hfa 2 puffs INH Q4H PRN 09/02/16 07/31/19 Inhaler] Fluticasone 220 Mcg [Flovent] 2 puffs INH BID 09/02/16 07/31/19 Ipratropium/Albuterol [Combivent 1 puffs INH QID 09/02/16 07/31/19 Respimat] Salmeterol Xinafoate [Serevent 1 puffs INH BID 09/02/16 07/31/19 Diskus] lisinopriL [Lisinopril] 10 mg PO DAILY 09/02/16 07/31/19 metFORMIN [Glucophage] 1,000 mg PO DAILY PM 09/02/16 07/31/19 metFORMIN [Glucophage] 1,500 mg PO QDBREAKFAST 09/02/16 07/31/19 Benzonatate [Tessalon] 100 mg PO TID #30 capsule 09/06/16 07/31/19 diazePAM [Valium] 5 mg PO QPM #30 tablet 09/06/16 07/31/19 predniSONE [Deltasone] 20 mg PO DAILYWM #10 tablet 09/06/16 07/31/19 Ascorbic Acid [Vitamin C] 500 mg PO DAILY 07/31/19 07/31/19 Azithromycin 500 mg PO DAILY 07/31/19 07/31/19 Etodolac [Etodolac ER] 500 mg PO DAILY 07/31/19 07/31/19 Pioglitazone [Actos] 15 mg PO DAILY 07/31/19 07/31/19 Albuterol 2.5 mg INH RTQ4H PRN #50 neb 08/02/19 Budesonide [Pulmicort] 0.5 mg INH RTBID #50 neb 08/02/19 Ipratropium/Albuterol [Duoneb] 3 ml INH RTQ4H PRN #50 neb 08/02/19 - Allergies Allergies/Adverse Reactions: Allergies Allergy/AdvReac Type Severity Reaction Status Date / Time ciprofloxacin [From Cipro] Allergy Unknown Verified 07/30/19 14:21 ciprofloxacin HCl * Allergy Unknown Verified 07/30/19 14:21 [From Cipro] hydromorphone HCl * Allergy Unknown Verified 07/30/19 14:21 [From Dilaudid] oxycodone Allergy Unknown Verified 07/30/19 14:21 oxycodone HCl * Allergy Unknown Verified 07/30/19 14:21 [From OxyContin] - Social History Does the pt smoke?: No Smoking Status: Former smoker - POLST Patient has POLST: Yes POLST Status: Full Code PD ED PE NORMAL - Vitals Vital signs reviewed: Yes - General General: Alert and oriented X 3, Other (speaking in short sentences, visibly tachypneic) - HEENT HEENT: Atraumatic, PERRL, EOMI, Pharynx benign, Other - Neck Neck: Supple, no meningeal sign - Cardiac Cardiac: Other (tachycardic rate, regular rhythm) - Respiratory Respiratory: Other (Rhonchi to R upper back on lung auscultation) - Abdomen Abdomen: Non tender, Non distended - Back Back: No CVA TTP - Derm Derm: Normal color, Warm and dry - Extremities Extremities: No deformity - Neuro Neuro: Alert and oriented X 3 - Psych Psych: Normal mood, Normal affect Results - Vitals Vitals: Vital Signs - 24 hr 05/24/21 05/24/21 01:50 02:05 Temperature 38.6 C H Heart Rate 130 H 121 H Respiratory 27 H 20 Rate Blood Pressure 149/91 H O2 Saturation 95 Oxygen O2 Source Nasal cannula Oxygen Flow Rate 4 - Labs Labs: Laboratory Tests 05/24/21 05/24/21 05/24/21 01:52 02:16 02:16 WBC 11.5 H RBC 3.91 L Hgb 11.6 L Hct 38.1 L MCV 97.4 H MCH 29.7 MCHC 30.4 L RDW 14.7 Plt Count 329 MPV 8.9 Neut # (Auto) Not Reportable Lymph # (Auto) Not Reportable [place] # (Auto) Not Reportable Eos # (Auto) Not Reportable Baso # (Auto) Not Reportable Absolute Nucleated RBC Not Reportable Total Counted 100 Band Neuts % (Manual) 1 Abnorm Lymph % (Manual) 0 Myelocytes % 2 H Nucleated RBC % Not Reportable Neutrophils # (Manual) 8.5 H Lymphocytes # (Manual) 1.5 Monocytes # (Manual) 1.0 Eosinophils # (Manual) 0.2 Basophils # (Manual) 0.0 Differential Comment MANUAL DIFFERENTIAL WBC Morphology NORMAL APPEARANCE Platelet Estimate NORMAL (130-450,000) Platelet Morphology NORMAL APPEARANCE RBC Morph Micro Appear NORMAL APPEARANCE VBG pH VBG pCO2 VBG pO2 VBG HCO3 VBG Total CO2 VBG O2 Saturation VBG Base Excess Sodium 136 Potassium 5.2 H Chloride 100 L Carbon Dioxide 25 Anion Gap 11.0 BUN 31 H Creatinine 1.8 H Estimated GFR (MDRD) 37 L Glucose 117 H Lactic Acid Calcium 9.0 Total Bilirubin 0.6 AST 19 ALT 17 Alkaline Phosphatase 86 Troponin I High Sens 15.7 Total Protein 7.0 Albumin 3.9 Globulin 3.1 Albumin/Globulin Ratio 1.3 Lipase 34 05/24/21 05/24/21 02:16 02:57 WBC RBC Hgb Hct MCV MCH MCHC RDW Plt Count MPV Neut # (Auto) Lymph # (Auto) [place] # (Auto) Eos # (Auto) Baso # (Auto) Absolute Nucleated RBC Total Counted Band Neuts % (Manual) Abnorm Lymph % (Manual) Myelocytes % Nucleated RBC % Neutrophils # (Manual) Lymphocytes # (Manual) Monocytes # (Manual) Eosinophils # (Manual) Basophils # (Manual) Differential Comment WBC Morphology Platelet Estimate Platelet Morphology RBC Morph Micro Appear VBG pH 7.409 VBG pCO2 37.1 L VBG pO2 45.1 VBG HCO3 22.9 L VBG Total CO2 24.1 VBG O2 Saturation 81.4 H VBG Base Excess -1.4 Sodium Potassium Chloride Carbon Dioxide Anion Gap BUN Creatinine Estimated GFR (MDRD) Glucose Lactic Acid 1.2 Calcium Total Bilirubin AST ALT Alkaline Phosphatase Troponin I High Sens Total Protein Albumin Globulin Albumin/Globulin Ratio Lipase PD MEDICAL DECISION MAKING - ED course ED course: 71yM with pmh copd p/w sepsis 2/2 pneumonia apparent on physical exam with no other apparent source. CURB-65 2 (6.8% 30 day mortality) due to age and elevated BUN. d/w Dr. Lawrence for admission. Departure - Departure Disposition: ED Place in Observation Clinical Impression: Pneumonia, Sepsis Condition: Stable
[2021-05-24 03:03] LABS: VBG PCO2 37.1 mmHg (41-51); VBG PH 7.409 (7.31-7.41); VBG PO2 45.1 mmHg (25-47)
[2021-05-24 03:04] LABS: VBG BASE EXCESS -1.4 mmol/L (-2 - +2); VBG HCO3 22.9 mmol/L (23-28); VBG OXYGEN SATURATION 81.4 % (60-80); VBG TOTAL CO2 24.1 mmol/L (24-29)
[2021-05-24] MEDS ORDERED: ONDANSETRON 4 MG/2 ML VIAL IVP PRN (03:06)
[2021-05-24] MEDS ORDERED: ACETAMINOPHEN 325 MG TABLET PO PRN (03:06)
[2021-05-24] MEDS ORDERED: AZITHROMYCIN INJ 500 MG in SODIUM CHLORIDE 0.9% 250 ML IV STA (03:06)
[2021-05-24] MEDS ORDERED: cefTRIAXone 2 GM in SODIUM CHLORIDE 0.9% MINIBAG 100 ML IV STA (03:06)
[2021-05-24] MEDS ORDERED: oxyCODONE 5 MG TABLET PO STA (03:10)
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
[2021-05-24] MEDS ORDERED: cefTRIAXone 2 GM VIAL ONE (03:16)
[2021-05-24] MEDS ORDERED: AZITHROMYCIN 250 MG TABLET PO STA (03:26)
[2021-05-24] MEDS ORDERED: KETOROLAC 30 MG/ML VIAL IVP PRN (03:28)
[2021-05-24] MEDS ORDERED: LEVALBUTEROL 1.25 MG/3 ML NEB INH PRN (03:30)
[2021-05-24] MEDS ORDERED: ACETAMINOPHEN/CODEINE 300 MG/30 MG TABLET PO PRN (03:32)
[2021-05-24] MEDS: SODIUM CHLORIDE 0.9% 1,000 ML IV SCH ×2 (03:50→14:16)
[2021-05-24 04:05] LABS: B. PARAPERTUSSIS- RESP PCR PAN NOT DETECTED; B. PERTUSSIS- RESP PCR PANEL NOT DETECTED; C. PNEUMONIAE- RESP PCR PANEL NOT DETECTED; CORONAVIRUS 229E-RESP PCR NOT DETECTED; CORONAVIRUS HKU1-RESP PCR NOT DETECTED; CORONAVIRUS NL63-RESP PCR NOT DETECTED; CORONAVIRUS OC43-RESP PCR NOT DETECTED; HUMAN METAPNEUMOVIRUS NOT DETECTED; INFLUENZA A- RESP PCR PANEL NOT DETECTED; INFLUENZA B - RESP PCR PANEL NOT DETECTED; M. PNEUMONIAE- RESP PCR PANEL NOT DETECTED; PARAINFLUENZA VIRUS 1 NOT DETECTED; PARAINFLUENZA VIRUS 2 NOT DETECTED; PARAINFLUENZA VIRUS 3 NOT DETECTED; PARAINFLUENZA VIRUS 4 NOT DETECTED; RHINOVIRUS/ENTEROVIRUS NOT DETECTED; RSV- RESP PCR PANEL NOT DETECTED; SARS-CoV-2 -RESP PCR PANEL NOT DETECTED
[2021-05-24] MEDS: diazePAM 5 MG TABLET PO SCH ×2 (04:06→20:44)
[2021-05-24] MEDS: methylPREDNISolone SUCCINATE 40 MG/ML VIAL IVP SCH ×3 (05:51→21:23)
[2021-05-24] MEDS ORDERED: BUDESONIDE 0.5 MG/2 ML NEB INH SCH (07:00)
--- NOTE | 2021-05-24 07:43 | XRAY Report ---
PROCEDURE: Chest 1 View X-Ray INDICATIONS: R chest discomfort, fever, cough, soa COMMENTS: SENT TO [facility]. FEVER TONIGHT AN D SHORT OF BREATH. RIGHT CHEST DISCOMFORT. PRIORS: xr chest 08/01/19, xr chest 07/30/19, xr chest TECHNIQUE: One view of the chest was acquired. COMPARISON: 08/01/2019 FINDINGS: Surgical changes and devices: None. Lungs and pleura: No pleural effusions or pneumothorax. New right suprahilar infiltrate is presen t with areas of consolidation. Chronic pleural parenchymal changes in the right lateral lung base are stable. The left lung is clear. Mediastinum: Mediastinal contours appear normal. Heart size is normal. Bones and chest wall: No suspicious bony lesions. Overlying soft tissues appear unremarkable. IMPRESSION: New right upper lobe pneumonia suspected. Findings above correspond with preliminary findings by Alis. Reviewed by: Ender Cerna on 05/24/2021 7:42 AM PDT Approved by: Ender Cerna on 05/24/2021 7:42 AM PDT Station ID: [id number]
--- NOTE | 2021-05-24 08:11 | PHARMACY PROGRESS NOTE ---
- Best Possible Medication History Admit Date and Time: 05/24/21 0306 Processed by: Pharmacy Medication History completed: Yes Patient Interview: Completed Secondary Source(s): Physician records, Pharmacy records (PATIENT ABLE TO CONFIRM HOME MEDICATIONS ) As the person ultimately responsible for medication therapy, providers are able to order a medication from an existing home medication list in [facility] via the "Reconcile Routine" prior to Confirmation of that medication by geophysical support specialist. Such practice is discouraged except when the physician, in their clinical judgment, deems that a medical need exists for a medication without regard to previous use.
[2021-05-24] MEDS: ACETAMINOPHEN/CODEINE 300 MG/30 MG TABLET PO SCH ×3 (08:27→20:44)
[2021-05-24] MEDS: IPRATROPIUM/ALBUTEROL 3 ML NEB INH SCH ×4 (08:27→19:30)
[2021-05-24] MEDS: BUDESONIDE 0.5 MG/2 ML NEB INH SCH ×2 (08:27→19:30)
[2021-05-24] MEDS: FORMOTEROL FUMARATE NEB 20 MCG/2 ML INH SCH ×2 (08:27→19:30)
[2021-05-24] MEDS: guaiFENesin 600 MG TABLET PO SCH ×2 (08:28→20:43)
[2021-05-24] MEDS: lisinopriL 5 MG TABLET PO SCH ×2 (08:28→08:44)
[2021-05-24 08:29] LABS: ESTIMATED AVERAGE GLUCOSE 151 mg/dL (70-100); HEMOGLOBIN A1c% 6.9 % (4.27-6.07)
[2021-05-24] MEDS: HEPARIN 5,000 UNIT/ML VIAL SUBQ SCH ×2 (08:30→20:57)
[2021-05-24] MEDS ORDERED: levoFLOXacin 750 MG/150 ML 750 MG/150 ML BAG IV SCH (08:30)
[2021-05-24] MEDS: INSULIN ASPART 300 UNIT/3 ML PEN SUBQ SCH ×4 (08:36→20:55)
[2021-05-24] MEDS: SODIUM CHLORIDE FLUSH 0.9% 10 ML SYRINGE IVP SCH ×2 (08:45→16:47)
[2021-05-24 08:49] LABS: GLUCOSE, URINE (UA) NEGATIVE (NEGATIVE); KETONES,URINE (UA) NEGATIVE (NEGATIVE); LEUKOCYTE ESTERASE, URINE NEGATIVE (NEGATIVE); NITRITE,URINE NEGATIVE (NEGATIVE); OCCULT BLOOD,URINE NEGATIVE (NEGATIVE); PH,URINE 6.5 PH (5.0-7.5); PROTEIN,URINE NEGATIVE (NEGATIVE); UROBILINOGEN,URINE 0.2 (NORMAL) E.U./dL (NORMAL)
[2021-05-24 09:09] LABS: BILIRUBIN,URINE MODERATE (NEGATIVE); CLARITY,URINE CLEAR (CLEAR); ICTOTEST,URINE POSITIVE
[2021-05-24 09:32] LABS: BACTERIA,URINE None Seen /HPF (None Seen); RBC,URINE None Seen /HPF (0-5); SQUAMOUS EPITHELIAL CELL,UR NONE SEEN (<= Few); WBC,URINE 0-3 /HPF (0-3)
[2021-05-24] MEDS ORDERED: LEVALBUTEROL 1.25 MG/3 ML NEB INH SCH (11:00)
[2021-05-24] MEDS ORDERED: ALBUTEROL NEB 2.5 MG/3 ML INH PRN (12:33)
[2021-05-24] MEDS ORDERED: MUPIROCIN 2% OINT 22 GM TUBE TOP ONE (12:43)
[2021-05-24] MEDS ORDERED: CARBOXYMETHYLCELLULOSE OPHTH DROPS EACHEYE PRN (15:36)
[2021-05-24] MEDS ORDERED: SODIUM CHLORIDE 0.9% 1,000 ML IV SCH (21:03)
[2021-05-25] MEDS: ACETAMINOPHEN/CODEINE 300 MG/30 MG TABLET PO SCH ×4 (01:08→20:28)
[2021-05-25] MEDS: SODIUM CHLORIDE FLUSH 0.9% 10 ML SYRINGE IVP SCH ×3 (01:11→17:25)
[2021-05-25] MEDS: methylPREDNISolone SUCCINATE 40 MG/ML VIAL IVP SCH ×3 (05:47→20:38)
[2021-05-25 06:25] LABS: BASOPHILS % (AUTO) 0.1 %; EOSINOPHILS % (AUTO) 0.1 %; HCT - HEMATOCRIT 34.6 % (42.0-52.0); HGB - HEMOGLOBIN 10.6 g/dL (14.0-18.0); LYMPHOCYTES # (AUTO) 0.4 10^3/uL (1.5-3.5); LYMPHOCYTES % (AUTO) 4.8 %; MEAN CORPUSCULAR HEMOGLOBIN 29.2 pg (27.0-31.0); MEAN CORPUSCULAR HGB CONC 30.6 g/dL (32.0-36.0); MEAN CORPUSCULAR VOLUME 95.3 fL (80.0-94.0); MEAN PLATELET VOLUME 9.4 fL (7.4-11.4); MONOCYTES # (AUTO) 0.6 10^3/uL (0.0-1.0); MONOCYTES % (AUTO) 7.6 %; NEUTROPHILS # (AUTO) 7.1 10^3/uL (1.5-6.6); NEUTROPHILS % (AUTO) 86.4 %; PLT - PLATELET COUNT 306 10^3/uL (130-450); RED BLOOD COUNT 3.63 10^6/uL (4.70-6.10); RED CELL DISTRIBUTION WIDTH 14.4 % (12.0-15.0); WHITE BLOOD COUNT 8.3 x10^3/uL (4.8-10.8)
[2021-05-25 06:33] LABS: CALCIUM 9.3 mg/dL (8.5-10.3); CREATININE 0.9 mg/dL (0.6-1.2)
[2021-05-25] MEDS: IPRATROPIUM/ALBUTEROL 3 ML NEB INH SCH ×4 (07:27→17:59)
[2021-05-25] MEDS: FORMOTEROL FUMARATE NEB 20 MCG/2 ML INH SCH ×2 (07:27→18:00)
[2021-05-25] MEDS: BUDESONIDE 0.5 MG/2 ML NEB INH SCH ×2 (07:27→17:59)
[2021-05-25] MEDS: lisinopriL 5 MG TABLET PO SCH (08:44)
[2021-05-25] MEDS: guaiFENesin 600 MG TABLET PO SCH ×2 (08:45→20:29)
[2021-05-25] MEDS: ASCORBIC ACID 500 MG TABLET PO SCH (08:45)
[2021-05-25] MEDS: levoFLOXacin 500 MG/100 ML 500 MG/100 ML BAG IV SCH (08:48)
[2021-05-25] MEDS: INSULIN ASPART 300 UNIT/3 ML PEN SUBQ SCH ×4 (08:51→20:36)
[2021-05-25] MEDS: HEPARIN 5,000 UNIT/ML VIAL SUBQ SCH ×2 (08:51→20:32)
--- NOTE | 2021-05-25 08:54 | PROVIDER PROGRESS NOTE ---
Assessment/Plan - Problem List (1) Acute respiratory failure with hypoxia Assessment/Plan: Likely secondary to pneumonia, COPD, and moderate aortic stenosis. Patient receiving Levaquin 750 mg IV daily. On supplemental oxygen. Receiving DuoNeb, albuterol and Xopenex scheduled and or as needed. Patient reports improvement in his breathing today compared to yesterday. (2) CAP (community acquired pneumonia) Qualifiers: Laterality: right Lung location: upper lobe of lung Qualified Code(s): J18.9 - Pneumonia, unspecified organism Assessment/Plan: On Levaquin 750 mg IV daily. (3) COPD (chronic obstructive pulmonary disease) with chronic bronchitis Assessment/Plan: Patient reports improvement in his respiratory status today compared to the previous day.On budesonide 0.5 mg twice daily. Formoterol 20 mcg inhaled twice daily. Albuterol On DuoNeb On 3 L of oxygen via nasal cannula. On Levaquin 750 mg IV daily. (4) Pleuritic chest pain Assessment/Plan: Pain management with Tylenol as needed. (5) Moderate aortic stenosis Assessment/Plan: 2D echocardiogram done 05/25/2021 showed an ejection fraction of 65 to 70%. There was no obvious wall motion abnormality. It showed moderate aortic stenosis with peak mean pressure gradient of 77 mmHg / 55 mmHg Mildly abnormal right heart pressure with an RVSP at rest of 43 mmHg. There was no pleural effusion noted. There was no pericardial effusion noted. (6) FAN (acute kidney injury) Assessment/Plan: Improved/resolved. Patient's creatinine today was 0.9 with an estimated GFR of 83. We will continue to monitor. (7) Diabetes mellitus type II, non insulin dependent Assessment/Plan: Diet ordered. Sliding scale insulin. Accu-Cheks before every meal and at bedtime. Will resume patient's Actos and Metformin upon discharge. (8) Hyperkalemia Assessment/Plan: Improved/resolved. Potassium was 5.0 today. - Current Meds Current Meds: Current Medications Generic Name Dose Route Start Last Admin Trade Name Freq PRN Reason Stop Dose Admin Acetaminophen/Codeine Phosphate 1 tab 05/24/21 08:00 05/25/21 08:45 Acetaminophen/Codeine 300 Mg/30 Mg Tablet PO 1 tab Q6H NAYELI Administration Albuterol 2.5 mg 05/24/21 12:33 05/25/21 00:05 Albuterol Neb 2.5 Mg/3 Ml INH 2.5 mg RTQ4H PRN Administration Wheezing Albuterol/Ipratropium 3 ml 05/24/21 08:10 05/25/21 07:27 Ipratropium/Albuterol 3 Ml Neb INH 3 ml RTQID NAYELI Administration Ascorbic Acid 500 mg 05/25/21 09:00 05/25/21 08:45 Ascorbic Acid 500 Mg Tablet PO 500 mg DAILY NAYELI Administration Budesonide 0.5 mg 05/24/21 08:10 05/25/21 07:27 Budesonide 0.5 Mg/2 Ml Neb INH 0.5 mg RTBID NAYELI Administration Diazepam 5 mg 05/24/21 03:32 05/24/21 20:44 Diazepam 5 Mg Tablet PO 5 mg QPM NAYELI Administration Formoterol Fumarate 20 mcg 05/24/21 08:10 05/25/21 07:27 Formoterol Fumarate Neb 20 Mcg/2 Ml INH 20 mcg RTBID NAYELI Administration Guaifenesin 600 mg 05/24/21 09:00 05/25/21 08:45 Guaifenesin 600 Mg Tablet PO 600 mg BID NAYELI Administration Heparin Sodium (Porcine) 5,000 unit 05/24/21 09:00 05/25/21 08:51 Heparin 5,000 Unit/Ml Vial SUBQ 5,000 unit BID NAYELI Administration Levofloxacin 500 mg in 100 mls @ 66.667 mls/hr 05/25/21 09:00 05/25/21 08:48 Levaquin 500 Mg/100 Ml IV 66.667 mls/hr DAILY NAYELI Administration Insulin Aspart 1 - 9 unit 05/24/21 17:00 05/25/21 08:51 Insulin Aspart 300 Unit/3 Ml Pen SUBQ 1 unit 0800,1200,1700,2100 NAYELI Administration Protocol Lisinopril 5 mg 05/25/21 09:00 05/25/21 08:44 Lisinopril 5 Mg Tablet PO 5 mg DAILY NAYELI Administration Methylprednisolone 40 mg 05/24/21 06:00 05/25/21 05:47 Methylprednisolone Succinate 40 Mg/Ml Vial IVP 40 mg TID NAYELI Administration Sodium Chloride 10 ml 05/24/21 09:00 05/25/21 08:48 Sodium Chloride Flush 0.9% 10 Ml Syringe IVP Not Given 0100,0900,1700 NAYELI - Lab Result Fish Bone Diagrams: 05/25/21 05:50 05/25/21 05:50 - Additional Planning My Orders: My Active Orders 05/24/21 07:56 Nebulizer/MDI Tx. [RC] .qid 05/24/21 08:00 Acetaminophen/Cod 300/30 [Tylenol #3] 1 tab PO Q6H 05/24/21 08:10 Formoterol Fumarate [Perforomist] 20 mcg INH RTBID Ipratropium/Albuterol [Duoneb] 3 ml INH RTQID 05/24/21 12:33 Albuterol 2.5 mg INH RTQ4H PRN 05/24/21 12:40 SCDs [RC] QSHIFT 05/25/21 08:00 Echo Transthoracic Complete [ECHO] Routine 05/25/21 09:00 levoFLOXacin 500 MG/100 ML [Levaquin 500 mg/100 ml] 500 mg in 100 ml IV DAILY lisinopriL [Zestril] 5 mg PO DAILY Subjective - Subjective Patient Reports: Other (Patient was resting in bed comfortably at time of exam. He reports breathing better today than the previous day. On auscultation there is improved air movement on the lungs. Lower extremity edema still noted at 3+.) Objective Vital Signs: Vital Signs - 24 hr 05/24/21 05/24/21 05/24/21 11:40 12:55 15:20 Temperature 36.9 C Heart Rate 87 87 Heart Rate [ 93 Brachial] Respiratory 18 22 22 Rate Blood Pressure 136/71 H [Left Brachial artery] Blood Pressure [Right Brachial artery] O2 Saturation 98 05/24/21 05/24/21 05/24/21 16:26 19:30 19:52 Temperature 36.9 C 36.8 C Heart Rate 86 Heart Rate [ 85 89 Brachial] Respiratory 22 20 22 Rate Blood Pressure 104/58 L 114/61 [Left Brachial artery] Blood Pressure [Right Brachial artery] O2 Saturation 98 100 05/24/21 05/25/21 05/25/21 23:53 00:05 05:00 Temperature 36.6 C 36.4 C L Heart Rate 76 Heart Rate [ 81 83 Brachial] Respiratory 20 20 16 Rate Blood Pressure [Left Brachial artery] Blood Pressure 127/56 L 132/63 H [Right Brachial artery] O2 Saturation 98 97 05/25/21 05/25/21 07:27 07:51 Temperature 36.5 C Heart Rate 75 Heart Rate [ 79 Brachial] Respiratory 18 18 Rate Blood Pressure [Left Brachial artery] Blood Pressure 111/91 H [Right Brachial artery] O2 Saturation 95 Oxygen O2 Source Nasal cannula Oxygen Flow Rate 4 I&O (Last 24 Hrs): Intake and Output Totals x24h 05/23/21 05/24/21 05/25/21 23:59 23:59 23:59 Intake Total 4625 Output Total 4150 1450 Balance 475 -1450 General: Alert, Oriented x3, Mild distress HEENT: PERRLA, EOMI Neck: Other (JVD present) Neuro: Alert, Oriented Times 3 Cardiovascular: Regular rate, Normal S1, Normal S2 Respiratory: Chest non-tender, Wheezes (bilaterally.), Other (Improved lung sounds) Abdomen: Normal bowel sounds, Soft, No tenderness, No masses Extremities: Other (3+ edema bilaterally) - Results Results: Laboratory Results WBC 8.3 x10^3/uL (4.8-10.8) 05/25/21 05:50 RBC 3.63 10^6/uL (4.70-6.10) L 05/25/21 05:50 Hgb 10.6 g/dL (14.0-18.0) L 05/25/21 05:50 Hct 34.6 % (42.0-52.0) L 05/25/21 05:50 MCV 95.3 fL (80.0-94.0) H 05/25/21 05:50 MCH 29.2 pg (27.0-31.0) 05/25/21 05:50 MCHC 30.6 g/dL (32.0-36.0) L 05/25/21 05:50 RDW 14.4 % (12.0-15.0) 05/25/21 05:50 Plt Count 306 10^3/uL (130-450) 05/25/21 05:50 MPV 9.4 fL (7.4-11.4) 05/25/21 05:50 Neut # (Auto) 7.1 10^3/uL (1.5-6.6) H 05/25/21 05:50 Lymph # (Auto) 0.4 10^3/uL (1.5-3.5) L 05/25/21 05:50 Perkins # (Auto) 0.6 10^3/uL (0.0-1.0) 05/25/21 05:50 Eos # (Auto) 0.0 10^3/uL (0.0-0.7) 05/25/21 05:50 Baso # (Auto) 0.0 10^3/uL (0.0-0.1) 05/25/21 05:50 Absolute Nucleated RBC 0.00 x10^3/uL 05/25/21 05:50 Total Counted 100 05/24/21 02:16 Band Neuts % (Manual) 1 % (0-10) 05/24/21 02:16 Abnorm Lymph % (Manual) 0 % 05/24/21 02:16 Myelocytes % 2 % (-0) H 05/24/21 02:16 Nucleated RBC % 0.0 /100WBC 05/25/21 05:50 Neutrophils # (Manual) 8.5 10^3/uL (1.5-6.6) H 05/24/21 02:16 Lymphocytes # (Manual) 1.5 10^3/uL (1.5-3.5) 05/24/21 02:16 Monocytes # (Manual) 1.0 10^3/uL (0.0-1.0) 05/24/21 02:16 Eosinophils # (Manual) 0.2 10^3/uL (0-0.7) 05/24/21 02:16 Basophils # (Manual) 0.0 10^3/uL (0-0.1) 05/24/21 02:16 Differential Comment MANUAL DIFFERENTIAL 05/24/21 02:16 WBC Morphology NORMAL APPEARANCE (NORMAL) 05/24/21 02:16 Platelet Estimate NORMAL (130-450,000) (NORMAL) 05/24/21 02:16 Platelet Morphology NORMAL APPEARANCE (NORMAL) 05/24/21 02:16 RBC Morph Micro Appear NORMAL APPEARANCE (NORMAL) 05/24/21 02:16 VBG pH 7.409 (7.31-7.41) 05/24/21 02:57 VBG pCO2 37.1 mmHg (41-51) L 05/24/21 02:57 VBG pO2 45.1 mmHg (25-47) 05/24/21 02:57 VBG HCO3 22.9 mmol/L (23-28) L 05/24/21 02:57 VBG Total CO2 24.1 mmol/L (24-29) 05/24/21 02:57 VBG O2 Saturation 81.4 % (60-80) H 05/24/21 02:57 VBG Base Excess -1.4 mmol/L (-2 - +2) 05/24/21 02:57 Sodium 139 mmol/L (135-145) 05/25/21 05:50 Potassium 5.0 mmol/L (3.5-5.0) 05/25/21 05:50 Chloride 103 mmol/L (101-111) 05/25/21 05:50 Carbon Dioxide 25 mmol/L (21-32) 05/25/21 05:50 Anion Gap 11.0 (6-13) 05/25/21 05:50 BUN 21 mg/dL (6-20) H 05/25/21 05:50 Creatinine 0.9 mg/dL (0.6-1.2) 05/25/21 05:50 Estimated GFR (MDRD) 83 (>89) L 05/25/21 05:50 Glucose 196 mg/dL (70-100) H 05/25/21 05:50 Estimat Average Glucose 151 mg/dL (70-100) H 05/24/21 01:53 Hemoglobin A1c % 6.9 % (4.27-6.07) H 05/24/21 01:53 Lactic Acid 1.2 mmol/L (0.5-2.2) 05/24/21 02:16 Calcium 9.3 mg/dL (8.5-10.3) 05/25/21 05:50 Total Bilirubin 0.6 mg/dL (0.2-1.0) 05/24/21 02:16 AST 19 IU/L (10-42) 05/24/21 02:16 ALT 17 IU/L (10-60) 05/24/21 02:16 Alkaline Phosphatase 86 IU/L (42-121) 05/24/21 02:16 Troponin I High Sens 15.7 ng/L (2.3-19.7) 05/24/21 01:52 Total Protein 7.0 g/dL (6.7-8.2) 05/24/21 02:16 Albumin 3.9 g/dL (3.2-5.5) 05/24/21 02:16 Globulin 3.1 g/dL (2.1-4.2) 05/24/21 02:16 Albumin/Globulin Ratio 1.3 (1.0-2.2) 05/24/21 02:16 Lipase 34 U/L (22-51) 05/24/21 02:16 Urine Color YELLOW 05/24/21 08:17 Urine Clarity CLEAR (CLEAR) 05/24/21 08:17 Urine pH 6.5 PH (5.0-7.5) 05/24/21 08:17 Ur Specific [place] 1.015 (1.002-1.030) 05/24/21 08:17 Urine Protein NEGATIVE mg/dL (NEGATIVE) 05/24/21 08:17 Urine Glucose (UA) NEGATIVE mg/dL (NEGATIVE) 05/24/21 08:17 Urine Ketones NEGATIVE mg/dL (NEGATIVE) 05/24/21 08:17 Urine Occult Blood NEGATIVE (NEGATIVE) 05/24/21 08:17 Urine Nitrite NEGATIVE (NEGATIVE) 05/24/21 08:17 Urine Bilirubin MODERATE (NEGATIVE) H 05/24/21 08:17 Urine Urobilinogen 0.2 (NORMAL) E.U./dL (NORMAL) 05/24/21 08:17 Ur Leukocyte Esterase NEGATIVE (NEGATIVE) 05/24/21 08:17 Urine RBC None Seen /HPF (0-5) 05/24/21 08:17 Urine WBC 0-3 /HPF (0-3) 05/24/21 08:17 Ur Squamous Epith Cells NONE SEEN (<= Few) 05/24/21 08:17 Urine Bacteria None Seen /HPF (None Seen) 05/24/21 08:17 Urine Culture Comments NOT INDICATED 05/24/21 08:17 Nasal Adenovirus (PCR) NOT DETECTED 05/24/21 02:38 Nasal B. parapertussis DNA (PCR) NOT DETECTED 05/24/21 02:38 Nasal Coronavir 229E PCR NOT DETECTED 05/24/21 02:38 Nasal Coronavir HKU1 PCR NOT DETECTED 05/24/21 02:38 Nasal Coronavir NL63 PCR NOT DETECTED 05/24/21 02:38 Nasal Coronavir OC43 PCR NOT DETECTED 05/24/21 02:38 Nasal Enterovir/Rhinovir PCR NOT DETECTED 05/24/21 02:38 Nasal Influenza B PCR NOT DETECTED 05/24/21 02:38 Nasal Influenza A PCR NOT DETECTED 05/24/21 02:38 Nasal Parainfluen 1 PCR NOT DETECTED 05/24/21 02:38 Nasal Parainfluen 2 PCR NOT DETECTED 05/24/21 02:38 Nasal Parainfluen 3 PCR NOT DETECTED 05/24/21 02:38 Nasal Parainfluen 4 PCR NOT DETECTED 05/24/21 02:38 Nasal RSV (PCR) NOT DETECTED 05/24/21 02:38 Nasal B.pertussis DNA PCR NOT DETECTED 05/24/21 02:38 Nasal C.pneumoniae (PCR) NOT DETECTED 05/24/21 02:38 Dayo Human Metapneumo PCR NOT DETECTED 05/24/21 02:38 Nasal M.pneumoniae (PCR) NOT DETECTED 05/24/21 02:38 Nasal SARS-CoV-2 (PCR) NOT DETECTED 05/24/21 02:38 Sepsis Event Note (H) - Evaluation Possible source of Sepsis: positive: Pulmonary - Sepsis Criteria Sepsis Criteria: Recorded Heart Rate greater than 90 bpm, Recorded Respiratory Rate greater than 20, Respiratory: Increasing oxygen requirements ABX Reporting Has patient been on IV antibiotics over the past 48 hours?: Yes
[2021-05-25] MEDS ORDERED: cefTRIAXone 2 GM in SODIUM CHLORIDE 0.9% MINIBAG 100 ML IV SCH (09:00)
[2021-05-25] MEDS ORDERED: AZITHROMYCIN 250 MG TABLET PO SCH (09:00)
[2021-05-25] MEDS: ETODOLAC 400 MG PO SCH (11:01)
[2021-05-25] MEDS: SODIUM CHLORIDE FLUSH 0.9% 10 ML SYRINGE IVP PRN ×2 (14:05→20:38)
[2021-05-25] MEDS: diazePAM 5 MG TABLET PO SCH (20:28)
[2021-05-26] MEDS: SODIUM CHLORIDE FLUSH 0.9% 10 ML SYRINGE IVP SCH ×2 (00:10→08:59)
[2021-05-26] MEDS: ACETAMINOPHEN/CODEINE 300 MG/30 MG TABLET PO SCH ×3 (02:04→14:01)
[2021-05-26] MEDS: methylPREDNISolone SUCCINATE 40 MG/ML VIAL IVP SCH ×2 (05:45→14:02)
[2021-05-26 05:55] LABS: BASOPHILS % (AUTO) 0.2 %; HCT - HEMATOCRIT 34.3 % (42.0-52.0); HGB - HEMOGLOBIN 10.6 g/dL (14.0-18.0); LYMPHOCYTES # (AUTO) 0.6 10^3/uL (1.5-3.5); MEAN CORPUSCULAR HEMOGLOBIN 29.7 pg (27.0-31.0); MEAN CORPUSCULAR HGB CONC 30.9 g/dL (32.0-36.0); MEAN CORPUSCULAR VOLUME 96.1 fL (80.0-94.0); MONOCYTES # (AUTO) 0.7 10^3/uL (0.0-1.0); MONOCYTES % (AUTO) 6.4 %; NEUTROPHILS # (AUTO) 10.1 10^3/uL (1.5-6.6); NEUTROPHILS % (AUTO) 87.4 %; PLT - PLATELET COUNT 330 10^3/uL (130-450); RED BLOOD COUNT 3.57 10^6/uL (4.70-6.10); RED CELL DISTRIBUTION WIDTH 14.3 % (12.0-15.0); WHITE BLOOD COUNT 11.5 x10^3/uL (4.8-10.8)
[2021-05-26 06:06] LABS: CALCIUM 9.5 mg/dL (8.5-10.3); CREATININE 0.8 mg/dL (0.6-1.2); POTASSIUM 5.4 mmol/L (3.5-5.0)
[2021-05-26] MEDS ORDERED: INSULIN REGULAR HUMAN 300 UNIT/3 ML VIAL IVP ONE (07:59)
[2021-05-26] MEDS ORDERED: DEXTROSE 50% ABBOJECT 25 GM/50 ML SYRINGE IVP ONE (07:59)
[2021-05-26] MEDS: INSULIN ASPART 300 UNIT/3 ML PEN SUBQ SCH ×2 (08:15→11:54)
[2021-05-26] MEDS: ASCORBIC ACID 500 MG TABLET PO SCH (08:32)
[2021-05-26] MEDS: lisinopriL 5 MG TABLET PO SCH (08:32)
[2021-05-26] MEDS: guaiFENesin 600 MG TABLET PO SCH (08:32)
[2021-05-26] MEDS: levoFLOXacin 500 MG/100 ML 500 MG/100 ML BAG IV SCH (08:38)
[2021-05-26] MEDS: IPRATROPIUM/ALBUTEROL 3 ML NEB INH SCH ×2 (08:50→14:36)
[2021-05-26] MEDS: BUDESONIDE 0.5 MG/2 ML NEB INH SCH (08:50)
[2021-05-26] MEDS: FORMOTEROL FUMARATE NEB 20 MCG/2 ML INH SCH (08:50)
[2021-05-26] MEDS: ETODOLAC 400 MG PO SCH (08:51)
[2021-05-26] MEDS: HEPARIN 5,000 UNIT/ML VIAL SUBQ SCH (08:57)
[2021-05-26 11:28] VITALS: BP 113/69
[2021-05-26 11:45] LABS: CALCIUM 9.9 mg/dL (8.5-10.3); CREATININE 0.9 mg/dL (0.6-1.2); POTASSIUM 4.6 mmol/L (3.5-5.0)
--- NOTE | 2021-05-26 12:18 | DISCHARGE SUMMARY ---
Discharge Summary Admit Date: 05/24/21 Discharge Date: 05/26/21 Discharging Provider: Mariana Sofia Primary Care Provider: Clemente Leigh Code Status: Attempt Resuscitation Condition at Discharge: Stable Discharge Disposition: 01 Home, Self Care - DIAGNOSES Admission Diagnoses: Acute on chronic respiratory failure with hypoxia Sepsis Community-acquired pneumonia Pleuritic chest pain COPD with chronic bronchitis FAN Diabetes mellitus type II, non insulin dependent Hyperkalemia Discharge Diagnoses with Status of Each Condition: Acute on chronic respiratory failure with hypoxia: Improved. 2/2 Pneumonia and COPD. Prescribed Levaquin 750mg po daily X5 days upon discharge Sepsis: Acute. Improved. 2/2 Pneumonia. Improved. Prescribed Levaquin 750mg po daily X5 days upon discharge Community-acquired pneumonia: Improved. 2/2 Pneumonia. Improved. Prescribed Levaquin 750mg po daily X5 days upon discharge Pleuritic chest pain: Acute Improved COPD with chronic bronchitis: Improved FAN: Resolved. Cr 0.9 eGFR 83 Diabetes mellitus type II, non insulin dependent: Stable. Continue home medication Hyperkalemia. Acute. Resolved. Potassium 4.6 Moderate Aortic Stenosis: New Diagnosis. To follow up with PCP - HPI History of Present Illness: Per HPI: This is a 71-year-old white male with a history of end-stage COPD, on home oxygen (at 3 L at rest and 4-5 L with activity), also history of anxiety and Diabetes not on Insulin. He was admitted here 1-1/2 years ago for COPD exacerbation, at that time had a Palliative Care consult with Ursula Carreon NP due to his end-stage COPD. He voiced wanting to be a DNR/DNI. The patient lives alone in an apartment, uses [employer], has a portable oxygen tank. He has a Film Printer at [facility] that he sees every 6 months. One week ago the patient started to develop progressively worsening shortness of breath with activity, and an increasing cough with increased sputum production, more than his usual, that was beige in color. He had intermittent pleuritic chest pain in the right lateral chest region and he suspected he had a pne umonia. He did not seek medical attention, however until today, when he spiked a fever at home of 102.7 F, and then he called an ambulance and was brought to the ED. Upon presentation, his heart rate was 130 in sinus tachycardia, he had a fever of 38.6C, was tachypneic with resp. rate 27 but saturations were 93-97% on his usual oxygen settings. A CXR showed a R sided pneumonia and WBC was elevated at 11.5. He is Covid neg and had 2 shots for a Covid vaccination. His heart rate improved with IV fluids and as the fever decreased. He was presented to the Hospitalist service for management of a community-acquired pneumonia. - HOSPITAL COURSE Hospital Course: Patient was admitted to the hospital and started on Levaquin 750 mg IV daily. He received this for 2 days of his hospital stay. He was prescribed DuoNeb, albuterol, Xopenex, budesonide and Perforomist during the course of his hospital stay. His breathing/respiration improved significantl y over the course of this 2 days. By the day of discharge he was back to his baseline oxygen requirement of 3 L. He was discharged home with a prescription of Levaquin 750 mg p.o. daily for 5 more days. Due to significant lower extremity edema he had a 2D echocardiogram done on 05/25/2021 which showed an ejection fraction of 65 to 70%. It showed indeterminate left ventricular filling pattern due to tachycardia. There was no obvious wall motion abnormality. The right atrium was moderately enlarged. He was noted to have a moderate aortic stenosis with peak/mean pressure gradient of 77 mmHg over 55 mmHg. The aortic valve is bicuspid. He was advised to follow-up with his primary care physician. For closer monitoring of this moderate aortic stenosis. He may need repeat 2D echocardiogram in about 1 year. Patient would subsequently need replacement of his aortic valve when the stenosis becomes severe. He was discharged home in stable condition after 2 days of hospital stay. - ALLERGIES Allergies/Adverse Reactions: Allergies Allergy/AdvReac Type Severity Reaction Status Date / Time ciprofloxacin [From Cipro] Allergy Unknown Verified 07/30/19 14:21 ciprofloxacin HCl * Allergy Unknown Verified 07/30/19 14:21 [From Cipro] hydromorphone HCl * Allergy Unknown Verified 07/30/19 14:21 [From Dilaudid] oxycodone Allergy Unknown Verified 07/30/19 14:21 oxycodone HCl * Allergy Unknown Verified 07/30/19 14:21 [From OxyContin] - MEDICATIONS Home Medications: Ambulatory Orders Medication Instructions Recorded Confirmed Acetaminophen/Cod 300/30 [Tylenol 1 - 2 tab PO Q6H PRN 09/02/16 05/24/21 #3] Albuterol Sulfate [Proair Hfa 2 puffs INH Q4H PRN 09/02/16 05/24/21 Inhaler] Fluticasone 220 Mcg [Flovent] 2 puffs INH BID 09/02/16 05/24/21 Ipratropium/Albuterol [Combivent 1 puffs INH QID 09/02/16 05/24/21 Respimat] Salmeterol Xinafoate [Serevent 1 puffs INH BID 09/02/16 05/24/21 Diskus] lisinopriL [Lisinopril] 5 mg PO DAILY 09/02/16 05/24/21 metFORMIN [Glucophage] 1,000 mg PO DAILY PM 09/02/16 05/24/21 metFORMIN [Glucophage] 1,500 mg PO QDBREAKFAST 09/02/16 05/24/21 diazePAM [Valium] 5 mg PO QPM #30 tablet 09/06/16 05/24/21 Ascorbic Acid [Vitamin C] 500 mg PO DAILY 07/31/19 05/24/21 Pioglitazone [Actos] 15 mg PO DAILY 07/31/19 05/24/21 Etodolac [Etodolac ER] 400 mg PO DAILY 05/24/21 05/24/21 Ipratropium/Albuterol [Duoneb] 3 ml INH TID PRN 05/24/21 05/24/21 predniSONE [Deltasone] 20 mg PO DAILY 05/24/21 05/24/21 levoFLOXacin [Levaquin] 750 mg PO DAILY 5 Days #15 tablet 05/26/21 - PHYSICAL EXAM AT DISCHARGE General Appearance: positive: No acute distress, Alert Eyes Bilateral: positive: PERRL, EOMI ENT: positive: No signs of dehydration Neck: positive: Trachea midline Respiratory: positive: Chest non-tender, No respiratory distress, Other (Coarse breath sounds with mild wheeze) Cardiovascular: positive: Regular rate & rhythm, Systolic murmur Abdomen: positive: Non-tender, No organomegaly, Nml bowel sounds, No distention. negative: Guarding, Rebound Back: positive: Nml inspection Skin: positive: Color nml, No rash, Warm, Dry Extremities: positive: Non-tender, Full ROM, Pedal edema (3+ lower extremity edema) Neurologic/Psychiatric: positive: Oriented x3, Mood/affect nml - LABS Result Diagrams: 05/26/21 05:46 05/26/21 11:23 - SEPSIS Possible source of Sepsis: Pulmonary Sepsis Criteria: Recorded Heart Rate greater than 90 bpm, Recorded Respiratory Rate greater than 20, Respiratory: Increasing oxygen requirements - TIME SPENT Time Spent in Discharge (Minutes): 25
--- NOTE | 2021-05-26 12:24 | Discharge Plan ---
Discharge Plan Problem Reviewed?: Yes Disposition: Home, Self Care Condition: Stable Prescriptions: levoFLOXacin [Levaquin] 750 mg PO DAILY 5 Days #15 tablet Diet: Diabetic (Low sodium) Activity Restrictions: Activity as Tolerated Health Concerns: You were admitted on 05/24/2021 with shortness of breath and coughing. Work-up showed that you had community-acquired pneumonia. You were admitted to the hospital and placed on more supplemental oxygen. You were also treated with Levaquin 750 mg IV daily for 2 days. You were also given breathing treatments which included DuoNeb, albuterol and Xopenex. You were also treated with Perforomist and budesonide. Over the course of your 2-day hospital stay your respiratory status improved significantly. You will be discharged home with a prescription of Levaquin 750 mg p.o. daily for 5 more days. It was also noted during your hospital stay that you had a heart murmur and significant lower extremity edema. Work-up included a 2D echocardiogram which showed that you had moderate aortic stenosis. Your ejection fraction was normal at 65 to 70%. You have been advised to follow-up with your primary care physician for close monitoring of the moderate aortic stenosis and possible repeat of a 2D echocardiogram in 1 year. You declined taking any diuretic to treat your significant lower extremity edema. You are being discharged in stable condition. You are back to your baseline 3 L of oxygen at rest. You expressed understanding to the above and are agreeable to the plan. No Smoking: If you smoke, Please STOP! Call for help. Follow-up with: CRISTIAN PATRICK MD [Primary Care Provider] -
== END 2021-05-26 17:14 | disposition home or self-care (01) | DRG 871 ==
LOC: EDUNIT# → ED 01:43 → SUPCPDRO 01:43 → MS2 03:06 → OBSVTOIN 05-25 15:03
PROVIDERS: ADMIT Internal Medicine; ATTEND Internal Medicine
DX: A41.9 Sepsis, unspecified organism (principal); J18.9 Pneumonia, unspecified organism; J96.21 Acute and chronic respiratory failure with hypoxia; N17.9 Acute kidney failure, unspecified; R65.20 Severe sepsis without septic shock; Z99.81 Dependence on supplemental oxygen; Z87.891 Personal history of nicotine dependence; R07.81 Pleurodynia; J43.9 Emphysema, unspecified; J42 Unspecified chronic bronchitis; E11.9 Type 2 diabetes mellitus without complications; Z20.822 Contact with and (suspected) exposure to COVID-19; E87.5 Hyperkalemia; I35.0 Nonrheumatic aortic (valve) stenosis; Z79.891 Long term (current) use of opiate analgesic; F41.9 Anxiety disorder, unspecified; Z66 Do not resuscitate; Z79.84 Long term (current) use of oral hypoglycemic drugs; Z79.899 Other long term (current) drug therapy; R60.0 Localized edema; N40.0 Benign prostatic hyperplasia without lower urinary tract symptoms; Z77.098 Contact with and (suspected) exposure to other hazardous, chiefly nonmedicinal, chemicals
CPT/HCPCS: 36415; 71045; 80048; 80053; 81001; 82803; 83036; 83605; 83690; 84484; 85025; 87040; 87070; 87077; 87181; 87205; 87631; 93005; 93306; 94640; 96365; 96366; 96372; 96375; 96376; 99284; 99285; A9270; G0378; J1815; J7626; 0202U; 87086

== ENCOUNTER 2022-05-27 10:35 | Outpatient (CLI) | payer MEDICARE, MEDICAID | END 2022-05-27 10:36 | disposition E | LOC: EMS 10:35 ==